=== PATIENT | female | born 1980 ===

== ENCOUNTER → 2023-01-18 10:03 | Outpatient (BNVA) | payer OTHER, SELFPAY | PROVIDERS: Visit Provider Physician Assistant ==

== ENCOUNTER 2023-02-17 08:38 | Outpatient (AMB) | payer OTHER, SELFPAY ==
--- NOTE | 2023-02-17 08:39 | A.OFFVIS_ITS ---
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 Recently diagnosed with DM - last A1C 7.0 Her goal is to be healthier and weight around 150 lbs. She reports first being concerned about her weight 10 years ago, + childhood trauma. She has tried multiple methods of weight loss including different diets without permanent results. She lives with her and dog. 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 She wakes at: 9am bed at 2am Breakfast: decaf coffee with creamer. about an hour later - 2 dry toast with 3 eggs, may have have castro or sausage Lunch: skips lunch 2 d/ week. sandwich or leftovers, water or Cranberry or apple juice Dinner: 6pm - baked chicken, rice or another carb. Vegetables - 2d/week. Juice After dinner: when gets home from work - will have leftovers or oatmeal Other snacks: one snack after dinner - usually sweets with decaf tea before bed Liquids: stopped soda, juice Alcohol intake: no ETOH, tobacco: none, marijuana: none Exercise: at home - total gym, bike. walks her dog on leash Last mammogram: needs to schedule repeat Last pap smear: up to date control method: needs to see hoist mechanic provider - none now VAN:3 ESS:12 GERD:1 QOL:138 PFSH Surgical History History of removal of ovarian cyst Hx of cholecystectomy Hx of myomectomy Hx of umbilical hernia repair Family History Mother Diabetes Father No problems noted. Social History (Updated 01/18/23 @ 10:18 by GIGI Coyle) Alcohol intake: never Patient Tobacco Use Status: Never used Tobacco Physical Exam Const General: cooperative, no acute distress and well developed Nutritional Appearance: obese Orientation/consciousness: patient oriented x3 HEENT Head: Yes normal to inspection Neck Neck: Yes normal visual inspection Thyroid: Thyroid normal Resp Effort & Inspection: normal respiratory effort Auscultation: clear to auscultation bilaterally Cardio Rate: regular rate Rhythm: regular rhythm Heart sounds: S1 normal heart sound present, S2 normal heart sound present and no murmurs GI Inspection: No distended and Yes obesity Palpation (GI): Soft to palpation, nontender and no guarding Skin General skin exam: no rashes or lesions noted and other (warm and dry) Wounds: no wounds Hair: normal Neuro General: patient oriented x3 Extrem General: Yes no pedal edema and Yes no calf tenderness Psych Attitude: cooperative Thought process: Normal thought process present Thought content: Normal thought content present Insight: Good insight present (Psych) Judgement: Good judgement present (Psych) Assessment & Plan Assessment & Plan (1) Morbid obesity: Code(s): E66.01 - Morbid (severe) obesity due to excess calories Plan: This is a 42 yo woman with morbid obesity and HTN who will start SWL program to prepare for bariatric surgery. Blood work, h pylori , CXR, ECG, Abd ULS and UGI have been ordered. She is being scheduled for RD and BH initial consultations. She will start SWL classes and watch at 3 classes before her next appt with Breonna. 1. Adequate sleep of 7-8 hours per night discussed 2. Healthy meal plan - stop skipping meals and stop all sweetened drinks All meals/MR's need to take 20 minutes to complete 11 am - 30 gram shake 2 pm - 30 gram shake 6 pm- dinner of 6 oz lean protein, 8 oz vegetable, 1 serving fruit 1:30 pm- bar or yogurt Exercise - Cardio 4 - 5 d week start with LS 1 mile videos and increase to 2 miles The importance of avoiding and breast feeding for at least 18 months after bariatric surgery was discussed in the information session and was reinforced today. NEEDS CONTRACEPTION Pt will purchase body composition analyzer (recommended list given to patient) and weight herself weekly. Next appt with me in 3 weeks. Text me with any questions and weekly weights. Patient is morbidly obese and is not considered stable at this time.?I spent a total of 60 minutes reviewing/updating records, examining the patient and counseling the patient on weight management as detailed above. (2) HTN (hypertension), benign: Code(s): I10 - Essential (primary) hypertension (3) Diabetes mellitus: Code(s): E11.9 - Type 2 diabetes mellitus without complications Orders: Orders Vitamin B12 and Folate Today E11.9 - Type 2 diabetes mellitus without complications, E66.01 - Morbid (severe) obesity due to excess calories, I10 - Essential (primary) hypertension, Z01.818 - Encounter for other preprocedural examination Comprehensive Met. Panel Today E11.9 - Type 2 diabetes mellitus without complications, E66.01 - Morbid (severe) obesity due to excess calories, I10 - Essential (primary) hypertension, Z01.818 - Encounter for other preprocedural examination C Reactive Protein Today E11.9 - Type 2 diabetes mellitus without complications, E66.01 - Morbid (severe) obesity due to excess calories, I10 - Essential (primary) hypertension, Z01.818 - Encounter for other preprocedural examination Ferritin Today E11.9 - Type 2 diabetes mellitus without complications, E66.01 - Morbid (severe) obesity due to excess calories, I10 - Essential (primary) hypertension, Z01.818 - Encounter for other preprocedural examination Hemoglobin A1c Today E11.9 - Type 2 diabetes mellitus without complications, E66.01 - Morbid (severe) obesity due to excess calories, I10 - Essential (primary) hypertension, Z01.818 - Encounter for other preprocedural examination Insulin Today E11.9 - Type 2 diabetes mellitus without complications, E66.01 - Morbid (severe) obesity due to excess calories, I10 - Essential (primary) hypertension, Z01.818 - Encounter for other preprocedural examination IRON PROFILE Today E11.9 - Type 2 diabetes mellitus without complications, E66.01 - Morbid (severe) obesity due to excess calories, I10 - Essential (primary) hypertension, Z01.818 - Encounter for other preprocedural examination Lipid Panel Today E11.9 - Type 2 diabetes mellitus without complications, E66.01 - Morbid (severe) obesity due to excess calories, I10 - Essential (primary) hypertension, Z01.818 - Encounter for other preprocedural examination PTHI Today E11.9 - Type 2 diabetes mellitus without complications, E66.01 - Morbid (severe) obesity due to excess calories, I10 - Essential (primary) hypertension, Z01.818 - Encounter for other preprocedural examination TSH reflex Free T4 Today E11.9 - Type 2 diabetes mellitus without complications, E66.01 - Morbid (severe) obesity due to excess calories, I10 - Essential (primary) hypertension, Z01.818 - Encounter for other preprocedural examination Vitamin A Today E11.9 - Type 2 diabetes mellitus without complications, E66.01 - Morbid (severe) obesity due to excess calories, I10 - Essential (primary) hypertension, Z01.818 - Encounter for other preprocedural examination Vitamin B1 Today E11.9 - Type 2 diabetes mellitus without complications, E66.01 - Morbid (severe) obesity due to excess calories, I10 - Essential (primary) h ypertension, Z01.818 - Encounter for other preprocedural examination Vitamin D 25-OH Total Today E11.9 - Type 2 diabetes mellitus without complications, E66.01 - Morbid (severe) obesity due to excess calories, I10 - Essential (primary) hypertension, Z01.818 - Encounter for other preprocedural examination Zinc Today E11.9 - Type 2 diabetes mellitus without complications, E66.01 - Morbid (severe) obesity due to excess calories, I10 - Essential (primary) hypertension, Z01.818 - Encounter for other preprocedural examination ECG 12 lead EKG Today E11.9 - Type 2 diabetes mellitus without complications, E66.01 - Morbid (severe) obesity due to excess calories, I10 - Essential (primary) hypertension, Z01.818 - Encounter for other preprocedural examination FL upper GI w air Today E11.9 - Type 2 diabetes mellitus without complications, E66.01 - Morbid (severe) obesity due to excess calories, I10 - Essential (primary) hypertension, Z01.818 - Encounter for other preprocedural examination Complete Blood Count Auto Diff Today E11.9 - Type 2 diabetes mellitus without complications, E66.01 - Morbid (severe) obesity due to excess calories, I10 - Essential (primary) hypertension, Z01.818 - Encounter for other preprocedural examination H Pylori Breath Test Today E11.9 - Type 2 diabetes mellitus without complications, E66.01 - Morbid (severe) obesity due to excess calories, I10 - Essential (primary) hypertension, Z01.818 - Encounter for other preprocedural examination US abdomen comp w elastography Today E11.9 - Type 2 diabetes mellitus without complications, E66.01 - Morbid (severe) obesity due to excess calories, I10 - Essential (primary) hypertension, Z01.818 - Encounter for other preprocedural examination XR chest 2V Today E11.9 - Type 2 diabetes mellitus without complications, E66.01 - Morbid (severe) obesity due to excess calories, I10 - Essential (primary) hypertension, Z01.818 - Encounter for other preprocedural examination Referrals Behavioral Health Referral E11.9 - Type 2 diabetes mellitus without complications, E66.01 - Morbid (severe) obesity due to excess calories, I10 - Essential (primary) hypertension, Z01.818 - Encounter for other preprocedural examination Nutrition/Dietitian Referral E11.9 - Type 2 diabetes mellitus without complications, E66.01 - Morbid (severe) obesity due to excess calories, I10 - Essential (primary) hypertension, Z01.818 - Encounter for other preprocedural examination Coding Level of Care Code New Pt Level 5 (86816) Diagnoses Morbid obesity E66.01 HTN (hypertension), benign I10 Diabetes mellitus E11.9
[2023-02-17 08:41] VITALS: BP 124/74; PULSE 74; TEMP 36.2; O2SAT 98; BMI 50.7
== END 2023-02-17 09:37 | disposition home or self-care (01) ==
PROVIDERS: Visit Provider Physician Assistant
DX: E66.01 Morbid (severe) obesity due to excess calories (principal); Z68.43 Body mass index [BMI] 50.0-59.9, adult; I10 Essential (primary) hypertension; E11.9 Type 2 diabetes mellitus without complications
CPT/HCPCS: 99205

== ENCOUNTER 2023-02-17 08:38 | Outpatient (REF) | payer OTHER, SELFPAY ==
[2023-02-21 14:26] LABS: H Pylori Breath Test Negative (Negative)
== END 2023-02-17 08:39 | disposition home or self-care (01) ==
LOC: HO.LNP 08:38
PROVIDERS: Visit Provider Physician Assistant
DX: Z01.818 Encounter for other preprocedural examination (principal); E66.01 Morbid (severe) obesity due to excess calories; I10 Essential (primary) hypertension; E11.9 Type 2 diabetes mellitus without complications; Z71.3 Dietary counseling and surveillance; Z68.43 Body mass index [BMI] 50.0-59.9, adult
CPT/HCPCS: 83013; 99211

== ENCOUNTER 2023-03-11 09:13 | Outpatient (REF) | payer OTHER, SELFPAY ==
--- NOTE | ~2023-03-11 | US_ITS ---
EXAMINATION: US COMPLETE ABDOMEN WITH LIVER ELASTOGRAPHY CLINICAL INFORMATION: Morbid obesity. COMPARISON: None available. TECHNIQUE: Real-time imaging of the abdominal viscera. Noninvasive ultrasound liver fibrosis assessment is performed using Keven ElastPQ point quantification shear wave elastography (2D-SWE) with a C5-2 MHz transducer. Multiple elastography samples are obtained. FINDINGS: PANCREAS: Normal. The visualized pancreatic head and body are normal in appearance. The remainder of the pancreas is obscured from visualization by the overlying bowel gas. ABDOMINAL AORTA: The proximal, middle, and distal aortic segments are normal in caliber. INFERIOR VENA CAVA: Visualized portions are normal. LIVER: The liver demonstrates normal size, contour and increased echogenicity. There is a hyperechoic lesion left hepatic lobe lateral segment measuring 1.0 x 1.0 x 1.9 cm suggestive of a small hemangioma. No additional lesions seen. There is no intrahepatic biliary duct dilatation. The right lobe measures 13.2 cm in length. The left lobe measures 10.5 cm in length. Portal flow is hepatopedal. Shear wave liver elastography median stiffness is 1.38 m/s (reference: normal median stiffness is 1.3 m/s or less). IQR/median stiffness to assess sampling precision is 0.05 (reference: good quality data set is IQR/median stiffness of 0.15 or less). GALLBLADDER: The gallbladder has been surgically removed. COMMON BILE DUCT: Normal in caliber measuring 0.4 cm in diameter. RIGHT KIDNEY: Normal. No hydronephrosis. No renal calculi or focal parenchymal lesions. The kidney measures 10.7 cm in maximum dimension. LEFT KIDNEY: Normal. No hydronephrosis. No renal calculi or focal parenchymal lesions. The kidney measures 9.3 cm in maximum dimension. SPLEEN: Normal. The spleen measures 9.8 cm in maximum dimension. FREE FLUID: None. US/US abdomen comp w elastography IMPRESSION: 1. Hepatic steatosis with left hepatic lobe hemangioma. No additional lesions seen. 2. Cholecystectomy. The rest of the abdominal ultrasound is unremarkable. 3. Liver elastography: Median liver stiffness measures 1.38 m/s corresponding to cACLD (ruled out). REFERENCE: Society of Radiologists in Ultrasound Liver Stiffness Thresholds (2019): LIVER STIFFNESS THRESHOLDS: *Liver Stiffness equal or less than 1.3 m/s: High probability of being normal. *Liver Stiffness less than 1.7 m/s: In the absence of other known clinical signs, rules out compensated advanced chronic liver disease. *Liver Stiffness 1.7-2.1 m/s: Suggestive of compensated advanced chronic liver disease but need further test for confirmation. *Liver Stiffness over 2.1 m/s: Rules in compensated advanced chronic liver disease. *Liver Stiffness over 2.4 m/s: Suggestive of clinically significant portal hypertension. QUALITY OF DATA SET: *IQR/Median value equal or less than 0.15 implies a quality data set. *IQR/Median value over 0.15 implies a poor quality data set. SIGNIFICANT CHANGE FROM PRIOR EXAM: Significant change if liver stiffness measurement is 10% or greater from prior exam. OTHER CONSIDERATIONS: The stage of liver fibrosis may be overestimated in the setting of acute hepatitis, liver inflammation, elevated liver function tests, hepatic vascular congestion, obstructive cholestasis, non-fasting state, and infiltrative diseases such as amyloidosis and lymphoma. In some patients with NAFLD, the liver stiffness thresholds for compensated advanced chronic liver disease may be lower. In causes other than viral hepatitis and NAFLD, liver stiffness thresholds are not well established.
--- NOTE | ~2023-03-11 | XR_ITS ---
EXAMINATION: XR CHEST CLINICAL INFORMATION: Obesity COMPARISON: None available. TECHNIQUE: 2 views of the chest were obtained. FINDINGS: The cardiac and mediastinal contours are normal. The lungs are clear. No pleural effusion or pneumothorax. Degenerative changes of the spine. XR/XR chest 2V IMPRESSION: No evidence for acute disease in the chest.
== END 2023-03-11 09:14 | disposition home or self-care (01) ==
LOC: HO.US 09:13
PROVIDERS: Visit Provider Physician Assistant
DX: Z01.818 Encounter for other preprocedural examination (principal); E11.9 Type 2 diabetes mellitus without complications; I10 Essential (primary) hypertension; E66.01 Morbid (severe) obesity due to excess calories
CPT/HCPCS: 71046; 76705; 76981

== ENCOUNTER 2023-03-17 09:28 | Outpatient (AMB) | payer OTHER, SELFPAY ==
--- NOTE | 2023-03-17 09:31 | A.OFFVIS_ITS ---
Intake VS Expanded 03/17/23 09:38 Height 5 ft 3 in Weight 272 lb 12.8 oz BMI 48.3 BP 136/66 Blood Pressure Location Rt brachial Blood Pressure Position Sitting Pulse 73 Pulse Source Pulse Oximeter Temp 96.9 F Temperature Source Temporal Artery Scan Pulse Oximetry 99 Oxygen Delivery Method Room Air Body Fat 123.6 Body Fat Percentage 45.4 Free Fat Mass 149.0 Muscle Mass 141.6 Visceral Mass 15.0 Water Mass 106.4 BMR 2,110 Intake Visit Reasons: (OV) F/U SWL Allergies No Known Allergies Allergy (Verified 03/17/23 09:37) HPI HPI Comments History of Present Illness Details This is the patients second appt for SWL. Starting weight was 292.8 lbs.. TBWL is 20 lbs or 6.8% TBWL. Meal plan: 11 am - Premier shake 2:30 - same shake 6pm - meal of 5 oz protien and variety of vegetables, zucchini or mixed vegetables or salad. 10 pm - bar or yogurt Exercise plan: walks a lot on track. Goes every other day - 5 times around track = 1.86 miles - 29 minutes, espino 170 calories. Also bike riding with her Pre op work up completed as follows: SWL classes - 03/15 appts- Avis 03/25 RD appts - 03/29 H pylori - negative Labs and ECG - not done yet CXR - normal ULS - liver steatosis, R 13.2, L 10.5, 1 cm hemangioma UGI - 04/29 Contraception: [facility] Surgical History History of removal of ovarian cyst Hx of cholecystectomy Hx of myomectomy Hx of umbilical hernia repair Family History Mother Diabetes Father No problems noted. Social History Alcohol intake: never Patient Tobacco Use Status: Never used Tobacco Assessment & Plan Assessment & Plan (1) Morbid obesity: Code(s): E66.01 - Morbid (severe) obesity due to excess calories Plan: SWL follow up doing great with 20 lbs or 6.8% TBWL so far. We made some changes to her exercise plan - Walk - 3 d/week 6 [address]es [address] track burn 250 calories 3 d/week LS 2 mile videos No changes to her meal plan. Will get labs and ECG today. Will try to get her an [employer] appt ofr her UGI. Next appt with me in 3 weeks. Patient is morbidly obese and is not considered stable at this time. I spent 30 minutes in total with patient reviewing/updating records, examining the patient and counseling the patient on weight management as detailed above. (2) Diabetes mellitus: Code(s): E11.9 - Type 2 diabetes mellitus without complications (3) HTN (hypertension), benign: Code(s): I10 - Essential (primary) hypertension Coding Level of Care Code Est Pt Level 4 (71469) Diagnoses Morbid obesity E66.01 Diabetes mellitus E11.9 HTN (hypertension), benign I10
[2023-03-17 09:38] VITALS: BP 136/66; PULSE 73; TEMP 36.1; O2SAT 99; BMI 48.3
== END 2023-03-17 09:57 | disposition home or self-care (01) ==
PROVIDERS: Visit Provider Physician Assistant
DX: E66.01 Morbid (severe) obesity due to excess calories (principal); Z68.42 Body mass index [BMI] 45.0-49.9, adult; E11.9 Type 2 diabetes mellitus without complications; I10 Essential (primary) hypertension
CPT/HCPCS: 99214

== ENCOUNTER 2023-03-17 09:28 | Outpatient (REF) | payer OTHER, SELFPAY ==
[2023-03-17 10:29] LABS: MANUAL DIFF FLAG NO
[2023-03-17 10:54] LABS: Basophils Percent Auto 0.7 % (0-2); Eosinophils Absolute Auto 0.1 X10*3/uL (0.0-0.4); Eosinophils Percent Auto 0.9 % (0-4); Hematocrit 35.1 % (37.0-47.0); Imm Gran Abs Auto 0.01 X10*3/uL (0.00-0.03); Imm Gran Pct Auto 0.2 % (0.0-0.4); Lymphocytes Absolute Auto 1.8 X10*3/uL (1.2-4.9); Lymphocytes Percent Auto 31.9 % (20-40); Mean Corpuscular HGB Conc 31.3 g/dl (31.0-35.0); Mean Corpuscular Hemoglobin 23.5 pg (27.0-33.0); Mean Platelet Volume 10.4 fL (9.4-12.3); Monocytes Absolute Auto 0.5 X10*3/uL (0.1-1.2); Monocytes Percent Auto 9.4 % (2-11); Neutrophils Absolute Auto 3.2 x10*3/uL (2.0-8.3); Neutrophils Percent Auto 56.9 % (45-73); Platelet Count 261 X10*3/uL (160-400); Red Blood Count 4.68 X10*6/uL (4.20-5.50); Red Cell Distribution Width 14.7 % (11.0-16.0); White Blood Count 5.6 X10*3/uL (4.8-10.8)
[2023-03-17 11:18] LABS: Estimated Average Glucose 123 mg/dL; Hemoglobin A1c % 5.9 %
[2023-03-17 11:47] LABS: Alanine Aminotransferase 15 U/L (0-31); Albumin Level 4.1 g/dL (3.5-5.0); Alkaline Phosphatase 43 U/L (39-117); Anion Gap 15 (12-20); Aspartate Amino Transferase 19 U/L (5-31); Bilirubin Total 0.7 mg/dL (0.0-1.0); Blood Urea Nitrogen 12 mg/dL (9-16); C Reactive Protein 0.67 mg/dL (< or = 0.50); Calcium 10.4 mg/dL (8.4-10.2); Carbon Dioxide 25 mmol/L (22-29); Chloride 103 mmol/L (96-108); Cholesterol 145 mg/dL; Estimated Glomerular Filt Rate > 60; Glucose Random 86 mg/dL (60-115); HDL Cholesterol 41 mg/dL; Iron 68 mcg/dL (30-160); LDL Cholesterol Calculated 95 mg/dl; Percent Iron Saturation 25 % (15-50); Potassium 3.5 mmol/L (3.3-5.1); Sodium 139 mmol/L (135-145); Total Iron Binding Capacity 274 mcg/dL (228-428); Total Protein 7.3 g/dL (6.5-8.0); Triglycerides 45 mg/dL; Unsaturated Iron Binding 206 ug/dL
[2023-03-17 11:59] LABS: Ferritin 77 ng/mL (10-250); TSH reflex Free T4 1.07 uIU/mL (0.32-4.0); Vitamin D 25-OH Total 42.8 ng/mL (>30)
[2023-03-17 12:07] LABS: Folate 16.6 ng/mL (> or = 4.0); Vitamin B12 1287 pg/mL (200-900)
[2023-03-17 12:26] LABS: Insulin 20 uU/mL (2-29)
[2023-03-18 19:38] LABS: Calcium (PTHI) 9.9 mg/dL (8.6-10.2); PTHI 53 pg/mL (16-77)
[2023-03-22 04:33] LABS: Zinc 97 mcg/dL (60-130)
[2023-03-22 22:03] LABS: Vitamin B1 12 nmol/L (8-30)
[2023-03-24 09:30] LABS: Vitamin A 29 mcg/dL (38-98)
== END 2023-03-17 09:29 | disposition home or self-care (01) ==
LOC: HO.LAB 09:28
PROVIDERS: Visit Provider Physician Assistant
DX: Z01.818 Encounter for other preprocedural examination (principal); E66.01 Morbid (severe) obesity due to excess calories; E11.9 Type 2 diabetes mellitus without complications; I10 Essential (primary) hypertension
CPT/HCPCS: 36415; 80053; 80061; 82306; 82607; 82728; 82746; 83036; 83525; 83540; 83970; 84425; 84443; 84590; 84630; 85025; 86140

== ENCOUNTER 2023-03-29 10:28 | Outpatient (AMB) | payer OTHER, SELFPAY ==
--- NOTE | 2023-03-17 10:09 | ECG_ITS ---
Test Reason : MORBID OBESITY Blood Pressure : / mmHG Vent. Rate : 068 BPM Atrial Rate : 068 BPM P-R Int : 180 ms QRS Dur : 102 ms QT Int : 412 ms P-R-T Axes : 029 -23 005 degrees QTc Int : 438 ms Normal sinus rhythm with sinus arrhythmia Incomplete right bundle branch block Minimal voltage criteria for LVH, may be normal variant ( R in aVL ) Borderline ECG No previous ECGs available Referred By: Padmini Villarreal Electronically Signed By:Jose William
[2023-03-29 10:54] VITALS: BMI 47.5
--- NOTE | 2023-03-29 10:54 | A.OFFVIS_ITS ---
Intake VS Expanded 03/29/23 10:54 Height 5 ft 3 in Weight 268 lb BMI 47.5 Body Fat 122.2 Body Fat Percentage 45.5 Muscle Mass 138.8 Visceral Mass 15 Water Mass 104.0 BMR 2,069 Intake Visit Reasons: (OV) Initial Nutrition SWL Allergies No Known Allergies Allergy (Verified 03/17/23 09:37) HPI Nutrition Presentation Details Starting weight 292.8 lbs current weight 268# Body comp reviewed Reason for consult elevated BMI Diet Assmnt Details Meal plan: 11 am - Premier shake 2:30 - same shake 6pm - meal of 5 oz protien and variety of vegetables, zucchini or mixed vegetables or salad. 10 pm - bar or yogurt Exercise plan: walks a lot on track. Goes every other day - 5 times around track = 1.86 miles - 29 minutes, espino 170 calories. Also bike riding with her . Patient shares her is extremely supportive. If I want to do anything he will do with me . SWL online classes 09/15 ; patient thought she had completed them all Dietary counseling reduction Who buys your food self and spouse Who prepares/cooks your food self and spouse Lifestyle Family support Yes Diagnosis Nutrition problem #1 overweight/obesity As related to (etiology) #1 excess energy intake and physical inactivity As evidenced by (sign/symptom) #1 high BMI Monitoring/Goals Nutrition problem monitoring total energy intake, level of knowledge/skill, total PRO intake, total CHO intake and weight Outcome progress progressing Learning/Education Readiness to learn excellent Stages of change action Educational materials provided Yes Most Recent Diabetes Results: Cholesterol 145 mg/dL 03/17/23 HDL Cholesterol 41 mg/dL 03/17/23 Triglycerides 45 mg/dL 03/17/23 Creatinine 0.88 mg/dL (0.5-1.4) 03/17/23 Blood Urea Nitrogen 12 mg/dL (9-16) 03/17/23 Sodium 139 mmol/L (135-145) 03/17/23 Potassium 3.5 mmol/L (3.3-5.1) 03/17/23 Chloride 103 mmol/L (96-108) 03/17/23 Carbon Dioxide 25 mmol/L (22-29) 03/17/23 Calcium 10.4 mg/dL (8.4-10.2) H 03/17/23 AST 19 U/L (5-31) 03/17/23 ALT 15 U/L (0-31) 03/17/23 Total Protein 7.3 g/dL (6.5-8.0) 03/17/23 Albumin 4.1 g/dL (3.5-5.0) 03/17/23 [facility] Surgical History History of removal of ovarian cyst Hx of cholecystectomy Hx of myomectomy Hx of umbilical hernia repair Family History Mother Diabetes Father No problems noted. Social History Alcohol intake: never Patient Tobacco Use Status: Never used Tobacco Assessment & Plan Assessment & Plan (1) Morbid obesity: Code(s): E66.01 - Morbid (severe) obesity due to excess calories (2) Diabetes mellitus: Code(s): E11.9 - Type 2 diabetes mellitus without complications Patient Instructions: no changes made to nutrition plan but provided recipe resources and all class education . she will complete online classes, follow up 04/29 8:45 am OV - has imaging study same morning. she will likely be a great candidate once all program requirements are completed Coding Level of Care Code Nutr Indiv Intake (17641) Diagnoses Morbid obesity E66.01 Diabetes mellitus E11.9 Time Spent (min) 30
== END 2023-03-29 11:32 | disposition home or self-care (01) ==
PROVIDERS: Visit Provider Dietitian, Registered
DX: E66.01 Morbid (severe) obesity due to excess calories (principal); E11.9 Type 2 diabetes mellitus without complications
CPT/HCPCS: 93010

== ENCOUNTER → 2023-03-29 11:00 | Outpatient (BNVA) | payer OTHER, SELFPAY | PROVIDERS: Visit Provider Dietitian, Registered | DX: E66.01 Morbid (severe) obesity due to excess calories (principal); Z68.42 Body mass index [BMI] 45.0-49.9, adult; E11.9 Type 2 diabetes mellitus without complications; Z71.3 Dietary counseling and surveillance | CPT/HCPCS: 97802 ==

== ENCOUNTER 2023-04-14 09:32 | Outpatient (AMB) | payer OTHER, SELFPAY ==
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
== END 2023-04-14 10:43 | disposition home or self-care (01) ==
PROVIDERS: Visit Provider Counselor Mental Health
DX: F50.9 Eating disorder, unspecified (principal)
CPT/HCPCS: 90791

== ENCOUNTER → 2023-04-14 09:32 | Outpatient (BNVA) | payer OTHER, SELFPAY | PROVIDERS: Visit Provider Counselor Mental Health ==

== ENCOUNTER 2023-04-29 08:06 | Outpatient (REF) | payer OTHER, SELFPAY ==
--- NOTE | ~2023-04-29 | FL_ITS ---
EXAMINATION: XR FLUOROSCOPY UPPER GI WITH AIR CLINICAL INFORMATION: [id number] obesity due to excess calories. COMPARISON: None available. TECHNIQUE: Routine upper GI air contrast study is performed in upright and lying position. FINDINGS: Following oral administration of thick barium and effervescent granules, there is normal propagation of bolus from the oral cavity through the pharynx, esophagus into stomach without any evidence of obstruction, narrowing or stricture. The course, caliber and peristalsis of the stomach, duodenal bulb and the sweep is normal. The mucosal pattern of the stomach and the duodenum is normal. On placing patient supine and prone lying, there is mild gastroesophageal reflux without hiatal hernia. There is evidence of previous right upper quadrant cholecystectomy. FLUOROSCOPY TIME: 1 minute and 2 seconds DOSE AREA PRODUCT: 2713 uGy-m2 (microgray-meter squared) FL/FL upper GI w air IMPRESSION: Mild gastroesophageal reflux otherwise unremarkable upper GI air contrast study.
== END 2023-04-29 08:07 | disposition home or self-care (01) ==
LOC: HO.XRAY 08:06
PROVIDERS: Visit Provider Physician Assistant
DX: K21.9 Gastro-esophageal reflux disease without esophagitis (principal); E66.01 Morbid (severe) obesity due to excess calories; I10 Essential (primary) hypertension; E11.9 Type 2 diabetes mellitus without complications; Z01.818 Encounter for other preprocedural examination
CPT/HCPCS: 74246; 97803

== ENCOUNTER → 2023-04-29 08:08 | Outpatient (BNV) | payer OTHER, SELFPAY | PROVIDERS: Visit Provider Radiology Diagnostic Radiology | DX: K21.9 Gastro-esophageal reflux disease without esophagitis (principal) | CPT/HCPCS: 74246 ==

== ENCOUNTER 2023-04-29 08:58 | Outpatient (AMB) | payer OTHER, SELFPAY ==
--- NOTE | 2023-04-29 08:58 | A.OFFVIS_ITS ---
Intake VS Expanded 04/29/23 09:14 Height 5 ft 3 in Weight 257 lb BMI 45.5 Intake Visit Reasons: (OV) F/U SWL Allergies No Known Allergies Allergy (Verified 03/17/23 09:37) HPI Nutrition Presentation Details Starting weight 292.8 lbs Last weight weight 268# Current weight 257# 35# down Reason for consult elevated BMI Diet Assmnt Details Meal plan: 11 am - Premier shake 2:30 - same shake 6pm - meal of 5 oz protien and variety o f vegetables, zucchini or mixed vegetables or salad. 10 pm - bar or yogurt Patient notes she has not deviated the above at all, she is very committed Exercise plan: walks every other day 30-40 , Also bike riding with her . Patient shares her is extremely supportive. If I want to do anything he will do with me . SWL online classes: completed , reviewed, demonstrates understanding. Dietary counseling reduction Lifestyle Family support Yes Diagnosis Nutrition problem #1 overweight/obesity As related to (etiology) #1 excess energy intake and physical inactivity As evidenced by (sign/symptom) #1 high BMI Monitoring/Goals Nutrition problem monitoring total energy intake, level of knowledge/skill, total PRO intake, total CHO intake and weight Outcome progress progressing Learning/Education Readiness to learn excellent Stages of change action Most Recent Diabetes Results: Cholesterol 145 mg/dL 03/17/23 HDL Cholesterol 41 mg/dL 03/17/23 Triglycerides 45 mg/dL 03/17/23 Creatinine 0.88 mg/dL (0.5-1.4) 03/17/23 Blood Urea Nitrogen 12 mg/dL (9-16) 03/17/23 Sodium 139 mmol/L (135-145) 03/17/23 Potassium 3.5 mmol/L (3.3-5.1) 03/17/23 Chloride 103 mmol/L (96-108) 03/17/23 Carbon Dioxide 25 mmol/L (22-29) 03/17/23 Calcium 10.4 mg/dL (8.4-10.2) H 03/17/23 AST 19 U/L (5-31) 03/17/23 ALT 15 U/L (0-31) 03/17/23 Total Protein 7.3 g/dL (6.5-8.0) 03/17/23 Albumin 4.1 g/dL (3.5-5.0) 03/17/23 [facility] Surgical History History of removal of ovarian cyst Hx of cholecystectomy Hx of myomectomy Hx of umbilical hernia repair Family History Mother Diabetes Father No problems noted. Social History Alcohol intake: never Patient Tobacco Use Status: Never used Tobacco Assessment & Plan Assessment & Plan (1) Morbid obesity: Code(s): E66.01 - Morbid (severe) obesity due to excess calories Patient Instructions: Patient is cleared from a nutrition standpoint for bariatric surgery. Educational requirements have been completed. Reviewed vitamin supplementation and commitment to protein shake for several months post surgery. Encouraged communication with office as needed Coding Level of Care Code Nutr Indiv Subseq ([id number]) Diagnoses Morbid obesity E66.01 Time Spent (min) 20
[2023-04-29 09:14] VITALS: BMI 45.5
== END 2023-04-29 09:14 | disposition home or self-care (01) ==
PROVIDERS: Visit Provider Dietitian, Registered
DX: E66.01 Morbid (severe) obesity due to excess calories (principal)

== ENCOUNTER 2023-05-03 09:58 | Outpatient (AMB) | payer OTHER, SELFPAY ==
--- NOTE | 2023-05-03 08:46 | A.OFFVIS_ITS ---
Intake VS Expanded 05/03/23 09:33 Height 5 ft 3 in Weight 259 lb BMI 45.9 BP 115/80 Intake Visit Reasons: (TV) F/U SWL Allergies No Known Allergies Allergy (Verified 03/17/23 09:37) HPI HPI Comments History of Present Illness Details SWL follow up, [employer] OR TRAP weight 292.8 lbs, TBWL is 33.8 lbs or 11.5%. Meal plan: 11 am - shake 3pm - shake 6pm - dinner of 6 oz mixed vegetables or salad with 5 oz chicken or salmon 10 pm - bar Exercise - ST every other day on her [employer] gym, walks 3 d/week -? doesn't know time/calories etc... Pre op work up completed as follows: SWL classes - 03/15 BH appts- Avis 03/25, cleared RD appts - 03/29, cleared H pylori - negative Labs - vit A def and anemia ECG - NSR, incomplete RBBB, borderline CXR - normal ULS - liver steatosis, R 13.2, L 10.5, 1 cm hemangioma UGI - Mild gastroesophageal reflux otherwise unremarkable upper GI air contrast study. Contraception: they will use condoms until patient gets Nexplanon, will call for appt today. [facility] Surgical History History of removal of ovarian cyst Hx of cholecystectomy Hx of myomectomy Hx of umbilical hernia repair Family History Mother Diabetes Father No problems noted. Social History Alcohol intake: never Patient Tobacco Use Status: Never used Tobacco Assessment & Plan Assessment & Plan (1) Morbid obesity: Code(s): E66.01 - Morbid (severe) obesity due to excess calories Plan: Pt has lost 33.8 lbs or 11.5% TBWL, she has completed all pre operative work up and will be scheduled for surgical consult with Dr Velasquez. Meal plan - no changes Exercise plan - increase to walks 4 d/week- 300 calories , 2 miles in [address], try TBP Will text me later in the week iwth electronic weight and TBP review. Continue taking both iron supplements for now - will check CBC prior to surgery. Patient is still morbidly obese and is not considered stable at this time. I spent 30 minutes in total speaking with the patient via video conference counseling , reviewing records and charting in patients chart. . (2) HTN (hypertension), benign: Code(s): I10 - Essential (primary) hypertension (3) Diabetes mellitus: Code(s): E11.9 - Type 2 diabetes mellitus without complications Medications: Refilled iron,carbonyl-vitamin C 65 mg iron- 125 mg (Vitron-C) 1 tab PO BEDTIME 30 tabs 4RF Telehealth Telehealth Location of provider rendering services: practice address Location of patient: address on file Patient Identification confirmed using: Name, : Yes Telehealth method: video Patient verbally consented to treatment: Yes Patient verbally consented to billing insurance company: Yes Patient informed of any privacy concerns related to visit: Yes Coding Level of Care Code Tele Est Pt Level 4 (52234) Diagnoses Morbid obesity E66.01 HTN (hypertension), benign I10 Diabetes mellitus E11.9
[2023-05-03 09:33] VITALS: BP 115/80; BMI 45.9
== END 2023-05-03 09:58 | disposition home or self-care (01) ==
LOC: HO.HBS 09:58
PROVIDERS: Visit Provider Physician Assistant
DX: E66.01 Morbid (severe) obesity due to excess calories (principal); Z68.42 Body mass index [BMI] 45.0-49.9, adult; E11.9 Type 2 diabetes mellitus without complications
CPT/HCPCS: 99213

== ENCOUNTER → 2023-05-03 09:58 | Outpatient (BNVA) | payer OTHER, SELFPAY | PROVIDERS: Visit Provider Physician Assistant ==

== ENCOUNTER 2023-05-10 09:37 | Outpatient (AMB) | payer OTHER, SELFPAY ==
--- NOTE | 2023-05-10 09:38 | MHC.OFFVISWM ---
Intake VS Expanded 05/10/23 09:45 BP 131/70 Blood Pressure Location Rt brachial Blood Pressure Position Sitting Pulse 68 Pulse Source Pulse Oximeter Temp 97.2 F Temperature Source Tympanic Pulse Oximetry 98 Oxygen Delivery Method Room Air Height 5 ft 3 in Weight 255 lb 6.4 oz BMI 45.2 Body Fat % 42.4 Body Fat Mass 108.2 Fat Free Mass 147.0 Visceral Fat Rating 13.0 Body Water % 41.1 Body Water Mass 105.0 Muscle Mass/Score 139.6 Basal Metabolic Rate/Score 2,057 Intake Visit Reasons: (OV) F/U SWL (Padmini) Allergies No Known Allergies Allergy (Verified 05/10/23 09:40) HPI HPI Comments History of Present Illness Details The patient is a 42-year-old woman with a history of type 2 diabetes identified with a hemoglobin A1c of 7.0, hypertension who entered the surgical weight loss program 02/17/2023 with a weight of 286.4 lb/BMI 50.7. She states she has tried fad diets, portion control and self exercise, all unsuccessfully. She has reviewed options including ongoing medical weight loss and bariatric surgery and is interested in a laparoscopic sleeve gastrectomy. She presents today at 255.4 lbs/BMI 45.2 & is congratulated on her interval weight loss. She reports a PSH: lap candelaria, umilical hernia repair with mesh, laparoscopy for scar tissue Patient notes that she will be going for Nexplanon, has no desire to become and will use condoms in the meantime. VAN 3 ESS 12 GERD 1 QOL 138 Meal plan: 11 am - shake 3pm - shake 6pm - dinner of 6 oz mixed vegetables or salad with 5 oz chicken or salmon 10 pm - bar Exercise - ST every other day on her total gym, walks 3 d/week -? doesn't know time/calories etc... Pre op work up completed as follows: SWL classes - 03/15 BH appts- Avis 03/25, cleared RD appts - 03/29, cleared H pylori - negative Labs - vit A def and anemia ECG - NSR, incomplete RBBB, borderline CXR - normal ULS - liver steatosis, R 13.2, L 10.5, 1 cm hemangioma (appears intraparenchymal on U/S images) UGI - Mild gastroesophageal reflux otherwise unremarkable upper GI air contrast study. PFSH Surgical History (Updated 05/10/23 @ 12:57 by Khurram Velasquez MD) History of removal of ovarian cyst Hx of cholecystectomy Hx of myomectomy Hx of umbilical hernia repair Family History Mother Diabetes Father No problems noted. Social History Alcohol intake: never Patient Tobacco Use Status: Never used Tobacco Review of Systems Const All systems reviewed & are unremarkable except as noted in HPI and below Reports as per HPI Physical Exam On exam, the patient is nontoxic and in good spirits She is in no acute distress She is having no respiratory difficulty Abdomen is obese with well-healed scars, no tenderness and no evidence of her recurrent or incisional hernia. Results Reviewed Results Reviewed: Labs 03/17/23 Hb 11.0, wbc 5.6, Plts 261K HbA1C down to 5.9 from 7.0 lytes WNL, BUN 12, Cr 0.88 Vit A low & tx'd CRP 0.67 Diagnostic imaging 04/29/23 UGI: no HH + GERD CXR NAD Abd U/S & liver elastography NAFLD, left lobe intraparenchymal hemangioma Assessment & Plan Assessment & Plan (1) Morbid obesity: Code(s): E66.01 - Morbid (severe) obesity due to excess calories (2) HTN (hypertension), benign: Code(s): I10 - Essential (primary) hypertension (3) Diabetes mellitus: Code(s): E11.9 - Type 2 diabetes mellitus without complications (4) Hx of umbilical hernia repair: Code(s): Z98.890 - Other specified postprocedural states; Z87.19 - Personal history of other diseases of the digestive system (5) Hx of cholecystectomy: Code(s): Z90.49 - Acquired absence of other specified parts of digestive tract Plan The patient is congratulated on her ongoing healthy lifestyle changes and weight loss. Options of medical weight loss versus bariatric surgery was discussed. The patient remains interested and would like to have a laparoscopic sleeve gastrectomy, possible hiatal hernia repair, intraoperative endoscopy and possible ventral hernia repair. Her questions regarding time out of work, the importance of diet and increased activity/exercise and trending calories burn, the risk of weight regain, risks of bleeding, DVT/fatal PE all reviewed. The patient notes that her Mormonism, and while she is not and is willing to receive prbc transfusion if necessary to save her life, she notes that he likely will have a different opinion. The patient had questions regarding scar tissue since she has had previous laparoscopy. Explained that significant scar tissue after laparoscopic sleeve gastrectomy is uncommon but very rarely, sleeve strictures or kinks can occur requiring reoperation. No change to meal plan was made at today's visit. She will continue on the current plan. Exercise importance stressed. She will follow up with me at the end of May. Will reassess towards scheduling surgery at that visit possibly for June. Coding Level of Care Code Est Pt Level 4 (98015) Diagnoses Morbid obesity E66.01 HTN (hypertension), benign I10 Diabetes mellitus E11.9 Hx of umbilical hernia repair Z98.890; Z87.19 Hx of cholecystectomy Z90.49
[2023-05-10 09:45] VITALS: BP 131/70; PULSE 68; TEMP 36.2; O2SAT 98; BMI 45.2
== END 2023-05-10 10:27 | disposition home or self-care (01) ==
PROVIDERS: Visit Provider Surgery
DX: E66.01 Morbid (severe) obesity due to excess calories (principal); Z68.42 Body mass index [BMI] 45.0-49.9, adult; I10 Essential (primary) hypertension; E11.9 Type 2 diabetes mellitus without complications; Z87.19 Personal history of other diseases of the digestive system; Z90.49 Acquired absence of other specified parts of digestive tract
CPT/HCPCS: 99214

== ENCOUNTER → 2023-05-10 09:37 | Outpatient (BNVA) | payer OTHER, SELFPAY | PROVIDERS: Visit Provider Surgery ==

== ENCOUNTER 2023-06-07 10:35 | Outpatient (AMB) | payer OTHER, SELFPAY ==
--- NOTE | 2023-06-07 10:38 | A.OFFVIS_ITS ---
Intake VS Expanded 06/07/23 10:44 BP 130/64 Blood Pressure Location Rt brachial Blood Pressure Position Sitting Pulse 69 Pulse Source Pulse Oximeter Temp 96.6 F L Temperature Source Tympanic Pulse Oximetry 97 Oxygen Delivery Method Room Air Height 5 ft 3 in Weight 251 lb 9.6 oz BMI 44.6 Body Fat % 41.4 Body Fat Mass 147.4 Fat Free Mass 147.4 Visceral Fat Rating 13.0 Body Water % 41.9 Body Water Mass 105.4 Muscle Mass/Score 140.0 Basal Metabolic Rate/Score 2,056 Intake Visit Reasons: (OV) F/U SWL (Padmini) Motor Block Mechanic Required: No Structural Mill Supervisor: Structural Mill Supervisor offered & declined Allergies No Known Allergies Allergy (Verified 05/10/23 09:40) HPI HPI Comments History of Present Illness Details The patient is a 42-year-old woman with a history of type 2 diabetes identified with a hemoglobin A1c of 7.0, hypertension who entered the surgical weight loss program 02/17/2023 with a weight of 286.4 lb/BMI 50.7. She states she has tried fad diets, portion control and self exercise, all unsuccessfully. She has reviewed options including ongoing medical weight loss and bariatric surgery and is interested in a laparoscopic sleeve gastrectomy. She presents today at 251.6.4 lbs/BMI 44.6 & is congratulated on her interval weight loss of 4 lbs since her last visit at the beginning of the month. 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 We discussed the importance of a preemptive plan giving her activity restrictions, bowel prep. She reports a PSH: lap candelaria, umbilical hernia repair with mesh, laparoscopy for scar tissue Patient notes that she will be going for Nexplanon, has no desire to become and will use condoms in the meantime. VAN 3 ESS 12 GERD 1 QOL 138 Meal plan: 11 am - shake 3pm - shake 6pm - dinner of 6 oz mixed vegetables or salad with 5 oz chicken or salmon 10 pm - bar Exercise - ST every other day on her total gym, walks 3 d/week -? doesn't know time/calories etc... Pre op work up completed as follows: SWL classes - 03/15 BH appts- Avis 03/25, cleared RD appts - 03/29, cleared H pylori - negative Labs - vit A def and anemia ECG - NSR, incomplete RBBB, borderline CXR - normal ULS - liver steatosis, R 13.2, L 10.5, 1 cm hemangioma (appears intraparenchymal on U/S images) UGI - Mild gastroesophageal reflux otherwise unremarkable upper GI air contrast study. REPLACED BY [facility] Surgical History History of removal of ovarian cyst Hx of cholecystectomy Hx of myomectomy Hx of umbilical hernia repair Family History Mother Diabetes Father No problems noted. Social History Alcohol intake: never Patient Tobacco Use Status: Never used Tobacco Review of Systems Const All systems reviewed & are unremarkable except as noted in HPI and below Physical Exam On exam, the patient is nontoxic and in good spirits She is in no acute distress She is having no respiratory difficulty Abdomen is obese with well-healed scars, no tenderness and no evidence of her recurrent or incisional hernia. Results Reviewed Results Reviewed: Labs 03/17/23 Hb 11.0, wbc 5.6, Plts 261K HbA1C down to 5.9 from 7.0 lytes WNL, BUN 12, Cr 0.88 Vit A low & tx'd CRP 0.67 Repeat HbA1C ordered today Diagnostic imaging 04/29/23 UGI: no HH + GERD CXR NAD Abd U/S & liver elastography NAFLD, left lobe intraparenchymal hemangioma Assessment & Plan Assessment & Plan (1) Diabetes mellitus: Code(s): E11.9 - Type 2 diabetes mellitus without complications (2) Morbid obesity: Code(s): E66.01 - Morbid (severe) obesity due to excess calories Plan The patient is congratulated on her ongoing healthy lifestyle changes and subsequent related weight loss. Options were discussed at length and her questions answered. She would like to proceed with a laparoscopic sleeve gastrectomy, possible hiatal hernia repair, intraoperative upper endoscopy and possible ventral hernia repair. We again reviewed the inherent risks of bleeding, need for reoperation, need for blood transfusion, risk of dehydration and DVT that could cause fatal PE, briefly reviewed the ana and postoperative plan in the importance of hydration and obtaining her protein shakes in advance. Discussion regarding her employer was addressed and she wrote notes to help facilitate this discussion. Patient will obtain a repeat hemoglobin A1c today and will be contacted after for 1 hour visit to schedule surgery, review the liver shrinking diet, and will be submitted to her insurance for surgery. Orders: Orders Hemoglobin A1c Today E11.9 - Type 2 diabetes mellitus without complications, E66.01 - Morbid (severe) obesity due to excess calories Coding Level of Care Code Est Pt Level 4 (16970) Diagnoses Diabetes mellitus E11.9 Morbid obesity E66.01
[2023-06-07 10:44] VITALS: BP 130/64; PULSE 69; TEMP 35.9; O2SAT 97; BMI 44.6
== END 2023-06-07 11:38 | disposition home or self-care (01) ==
PROVIDERS: Visit Provider Surgery
DX: E66.01 Morbid (severe) obesity due to excess calories (principal); Z68.41 Body mass index [BMI] 40.0-44.9, adult; E11.9 Type 2 diabetes mellitus without complications
CPT/HCPCS: 99214

== ENCOUNTER 2023-06-07 10:35 | Outpatient (REF) | payer OTHER, SELFPAY ==
[2023-06-07 12:05] LABS: Estimated Average Glucose 111 mg/dL; Hemoglobin A1c % 5.5 % (<6.0)
== END 2023-06-07 10:36 | disposition home or self-care (01) ==
LOC: HO.LAB 10:35
PROVIDERS: Visit Provider Surgery
DX: E11.9 Type 2 diabetes mellitus without complications (principal); E66.01 Morbid (severe) obesity due to excess calories
CPT/HCPCS: 36415; 83036

== ENCOUNTER 2023-06-17 09:57 | Outpatient (AMB) | payer OTHER, SELFPAY ==
--- NOTE | 2023-06-17 10:00 | A.OFFVIS_ITS ---
Intake VS Expanded 06/17/23 10:10 BP 134/74 Blood Pressure Location Rt brachial Blood Pressure Position Sitting Pulse 86 Pulse Source Pulse Oximeter Temp 97.5 F Temperature Source Temporal Artery Scan Pulse Oximetry 100 Oxygen Delivery Method Room Air Height 5 ft 3 in Weight 244 lb 9.6 oz BMI 43.3 Body Fat % 41.9 Body Fat Mass 102.6 Fat Free Mass 142.0 Visceral Fat Rating 12.0 Body Water % 41.5 Body Water Mass 101.4 Muscle Mass/Score 135.0 Basal Metabolic Rate/Score 1,980 Intake Visit Reasons: (OV) Pre Op LSG 06/29/23 Allergies No Known Allergies Allergy (Verified 06/17/23 10:04) HPI HPI Comments History of Present Illness Details The patient is a 42-year-old woman with a history of type 2 diabetes identified with a hemoglobin A1c of 7.0, hypertension who entered the surgical weight loss program 02/17/2023 with a weight of 286.4 lb/BMI 50.7. She states she has tried fad diets, portion control and self exercise, all unsuccessfully. She has reviewed options including ongoing medical weight loss and bariatric surgery and is interested in a laparoscopic sleeve gastrectomy. She is accompanied by her today. Patient had previously discussed that he is a Sabianist and she tries to follow their practice so we discussed the possibility of blood transfusion as well as options. Patient has requested we try to avoid any blood transfusions but is willing to discuss them if they become necessary. The possible need to reassess unusual complaints in the operating room with a repeat operation was also reviewed and apparently understood. She presents today at 244.6 lbs/BMI 43.3 & is congratulated on her interval weight loss of since her last visit at the beginning of the month. She has lost 42.1 lb since entering the surgical weight loss program. 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 We discussed the importance of a preemptive plan giving her activity restrictions, bowel pre p. She reports a PSH: lap candelaria, umbilical hernia repair with mesh, laparoscopy for scar tissue Patient notes that she will be going for Nexplanon, has no desire to become and will use condoms in the meantime. VAN 3 ESS 12 GERD 1 QOL 138 Meal plan: 11 am - shake 3pm - shake 6pm - dinner of 6 oz mixed vegetables or salad with 5 oz chicken or salmon 10 pm - bar Exercise - ST every other day on her total gym, walks 3 d/week -? doesn't know time/calories etc... Pre op work up completed as follows: SWL classes - 03/15 BH appts- Avis 03/25, cleared RD appts - 03/29, cleared H pylori - negative Labs - vit A def and anemia ECG - NSR, incomplete RBBB, borderline CXR - normal ULS - liver steatosis, R 13.2, L 10.5, 1 cm hemangioma (appears intraparenchymal on U/S images) UGI - Mild gastroesophageal reflux otherwise unremarkable upper GI air contrast study. [facility] Surgical History History of removal of ovarian cyst Hx of cholecystectomy Hx of myomectomy Hx of umbilical hernia repair Family History Mother Diabetes Father No problems noted. Social History Alcohol intake: never Patient Tobacco Use Status: Never used Tobacco Review of Systems Const All systems reviewed & are unremarkable except as noted in HPI and below Physical Exam Vital Signs: Last Vital Signs Temp 97.5 F 06/17/23 10:10 Pulse 86 06/17/23 10:10 BP 134/74 06/17/23 10:10 Pulse Ox 100 06/17/23 10:10 Oxygen Delivery Method Room Air 06/17/23 10:10 BMI result Body Mass Index 43.3 On exam, the patient is anicteric and nontoxic She is having no respiratory difficulty Abdomen is obese and soft with no obvious hernia Results Reviewed Results Reviewed: Labs 03/17/23 Hb 11.0, wbc 5.6, Plts 261K HbA1C down to 5.9 from 7.0 lytes WNL, BUN 12, Cr 0.88 Vit A low & tx'd CRP 0.67 Repeat HbA1C 5.5 Diagnostic imaging 04/29/23 UGI: no HH + GERD CXR NAD Abd U/S & liver elastography NAFLD, left lobe intraparenchymal hemangioma Assessment & Plan Assessment & Plan (1) Morbid obesity: Code(s): E66.01 - Morbid (severe) obesity due to excess calories (2) HTN (hypertension), benign: Code(s): I10 - Essential (primary) hypertension (3) Diabetes mellitus: Code(s): E11.9 - Type 2 diabetes mellitus without complications (4) Hx of umbilical hernia repair: Code(s): Z98.890 - Other specified postprocedural states; Z87.19 - Personal history of other diseases of the digestive system (5) Hx of cholecystectomy: Code(s): Z90.49 - Acquired absence of other specified parts of digestive tract Plan The patient is congratulated on her interval weight loss and healthy lifestyle changes. Options of continued medical management, 2nd opinion with another surgeon and the options of sleeve gastrectomy and gastric bypass were discussed. Patient and her seem to understand their options and the patient would like to proceed with a laparoscopic sleeve gastrectomy, possible hiatal hernia repair, intraoperative upper endoscopy and possible ventral hernia repair. I reviewed the inherent risks of this procedure which include, but are not limited to: Bleeding that could require another operation or blood transfusion; the inherent risks of transfusion reaction infectious disease from blood transfusions; the risk of staple line leaks that could cause sepsis, multi- system organ failure and ; the risk of mesenteric or deep vein thrombosis of the lower extremities that could cause a fatal pulmonary embolism was reviewed; the risk of GERD that could require conversion to gastric bypass was discussed; the risk of recurrent hiatal hernia, especially in the setting of weight regain was reviewed. The risk of weight regain if maladaptive eating and sedentary behavior continue was discussed. The importance of proper diet and increased activity to augment surgical weight loss and the fact that no operation would result in weight loss of poor dietary decisions and sedentary behavior are resumed were discussed at length and apparently understood. The patient, her and I discussed the possible issues regarding the christian concerns about blood transfusion and the possible need for diagnostic laparoscopy if there are any questions regarding bleeding to try to avoid a blood transfusion. The patient also noted that she would prefer a discussion if this becomes necessary. While the patient had previously noted a planned for Nexplanon as a contraceptive, she states that she was started on an oral contraceptive Incassia/progesterone. Due to the risk of DVT related from that could cause a fatal PE, she will stop them now & for a month post-op. Liver shrinking diet plan and handout were reviewed with the patient. She will text me if there are questions or concerns. The importance of following the diet was reviewed. See orders; typical perioperative course including bowel prep, meal plan, activity restrictions, the importance of hydration all discussed. Patient will void her urinary bladder club concierge to surgery, receive Ancef, 2 g IV and have SCDs in place. Orders: Orders Comprehensive Met. Panel 06/16/23 E11.9 - Type 2 diabetes mellitus without complications, E66.01 - Morbid (severe) obesity due to excess calories, I10 - Essential (primary) hypertension IRON PROFILE 06/16/23 E11.9 - Type 2 diabetes mellitus without complications, E66.01 - Morbid (severe) obesity due to excess calories, I10 - Essential (primary) hypertension Lipid Panel 06/16/23 E11.9 - Type 2 diabetes mellitus without complications, E66.01 - Morbid (severe) obesity due to excess calories, I10 - Essential (primary) hypertension Type and Screen 06/16/23 E11.9 - Type 2 diabetes mellitus without complications, E66.01 - Morbid (severe) obesity due to excess calories, I10 - Essential (primary) hypertension C Reactive Protein 06/16/23 E11.9 - Type 2 diabetes mellitus without complications, E66.01 - Morbid (severe) obesity due to excess calories, I10 - Essential (primary) hypertension Partial Thromboplastin Time 06/16/23 E11.9 - Type 2 diabetes mellitus without complications, E66.01 - Morbid (severe) obesity due to excess calories, I10 - Essential (primary) hypertension Vitamin B12 06/16/23 E11.9 - Type 2 diabetes mellitus without complications, E66.01 - Morbid (severe) obesity due to excess calories, I10 - Essential (primary) hypertension PTHI 06/16/23 E11.9 - Type 2 diabetes mellitus without complications, E66.01 - Morbid (severe) obesity due to excess calories, I10 - Essential (primary) hypertension Vitamin D 25-OH Total 06/16/23 E11.9 - Type 2 diabetes mellitus without complica tions, E66.01 - Morbid (severe) obesity due to excess calories, I10 - Essential (primary) hypertension TSH reflex Free T4 06/16/23 E11.9 - Type 2 diabetes mellitus without c omplications, E66.01 - Morbid (severe) obesity due to excess calories, I10 - Essential (primary) hypertension Hemoglobin A1c 06/16/23 E11.9 - Type 2 diabetes mellitus without complications, E66.01 - Morbid (severe) obesity due to excess calories, I10 - Essential (primary) hypertension Prothrombin Time INR 06/16/23 E11.9 - Type 2 diabetes mellitus without complications, E66.01 - Morbid (severe) obesity due to excess calories, I10 - Essential (primary) hypertension Vitamin A 06/16/23 E11.9 - Type 2 diabetes mellitus without complications, E66.01 - Morbid (severe) obesity due to excess calories, I10 - Essential (primary) hypertension Vitamin B1 06/16/23 E11.9 - Type 2 diabetes mellitus without complications, E66.01 - Morbid (severe) obesity due to excess calories, I10 - Essential (primary) hypertension Complete Blood Count Auto Diff 06/16/23 E11.9 - Type 2 diabetes mellitus without complications, E66.01 - Morbid (severe) obesity due to excess calories, I10 - Essential (primary) hypertension Ferritin 06/16/23 E11.9 - Type 2 diabetes mellitus without complications, E66.01 - Morbid (severe) obesity due to excess calories, I10 - Essential (primary) hypertension Zinc 06/16/23 E11.9 - Type 2 diabetes mellitus without complications, E66.01 - Morbid (severe) obesity due to excess calories, I10 - Essential (primary) hypertension Medications: New polyethylene glycol 3350 (Miralax) Take 7 packets 2 days before surgery and 7 packets 1 day before surgery. Mix each packet with 8 oz's of water before joseline angelita. 14 packets 0RF ondansetron HCl 4 mg PO Q6H PRN 20 tabs 0RF nausea and vomiting pantoprazole 40 mg PO QAM 30 days 30 tabs 2RF sucralfate 10 mL PO BID 30 days 600 mL 2RF acetaminophen 500 mg (15 mL) PO Q6H PRN 237 mL 2RF fever or pain Coding Level of Care Code Est Pt Level 4 (36340) Diagnoses Morbid obesity E66.01 HTN (hypertension), benign I10 Diabetes mellitus E11.9 Hx of umbilical hernia repair Z98.890; Z87.19 Hx of cholecystectomy Z90.49
[2023-06-17 10:10] VITALS: BP 134/74; PULSE 86; TEMP 36.4; O2SAT 100; BMI 43.3
== END 2023-06-17 11:04 | disposition home or self-care (01) ==
PROVIDERS: Visit Provider Surgery
DX: E66.01 Morbid (severe) obesity due to excess calories (principal); Z68.41 Body mass index [BMI] 40.0-44.9, adult
CPT/HCPCS: 99214

== ENCOUNTER → 2023-06-17 09:57 | Outpatient (BNVA) | payer OTHER, SELFPAY | PROVIDERS: Visit Provider Surgery | DX: E66.01 Morbid (severe) obesity due to excess calories (principal); I10 Essential (primary) hypertension; E11.9 Type 2 diabetes mellitus without complications ==

== ENCOUNTER 2023-06-28 10:40 | Outpatient (REF) | payer OTHER, SELFPAY ==
[2023-06-28 12:15] LABS: Magnesium 1.9 mg/dL (1.6-2.6); Potassium 3.3 mmol/L (3.3-5.1)
== END 2023-06-28 10:41 | disposition home or self-care (01) ==
LOC: HO.LAB 10:40
PROVIDERS: Visit Provider Surgery
DX: E87.6 Hypokalemia (principal); E11.9 Type 2 diabetes mellitus without complications; I10 Essential (primary) hypertension; E66.01 Morbid (severe) obesity due to excess calories
CPT/HCPCS: 36415; 83735; 84132

== ENCOUNTER 2023-06-29 06:09 | Inpatient (IN) | payer OTHER, SELFPAY ==
[2023-06-22 09:27] VITALS: BMI 42.5
[2023-06-27 09:22] LABS: MANUAL DIFF FLAG NO
[2023-06-27 09:29] LABS: INTERNATIONAL NORM RATIO 1.1 (0.9-1.1); Prothrombin Time 12.8 SEC (11.1-13.3)
[2023-06-27 09:32] LABS: Partial Thromboplastin Time 34.3 SEC (26.0-36.4)
[2023-06-27 10:03] LABS: Basophils Percent Auto 0.6 % (0-2); Eosinophils Absolute Auto 0.1 X10*3/uL (0.0-0.4); Eosinophils Percent Auto 0.9 % (0-4); Hematocrit 36.4 % (37.0-47.0); Hemoglobin 11.5 g/dl (12.0-16.0); Imm Gran Abs Auto 0.02 X10*3/uL (0.00-0.03); Imm Gran Pct Auto 0.4 % (0.0-0.4); Lymphocytes Absolute Auto 2.1 X10*3/uL (1.2-4.9); Lymphocytes Percent Auto 38.3 % (20-40); Mean Corpuscular HGB Conc 31.6 g/dl (31.0-35.0); Mean Corpuscular Hemoglobin 22.9 pg (27.0-33.0); Mean Corpuscular Volume 72.5 fL (80.0-98.0); Mean Platelet Volume 10.5 fL (9.4-12.3); Monocytes Absolute Auto 0.4 X10*3/uL (0.1-1.2); Monocytes Percent Auto 7.6 % (2-11); Neutrophils Absolute Auto 2.8 x10*3/uL (2.0-8.3); Neutrophils Percent Auto 52.2 % (45-73); Platelet Count 276 X10*3/uL (160-400); Red Blood Count 5.02 X10*6/uL (4.20-5.50); White Blood Count 5.4 X10*3/uL (4.8-10.8)
[2023-06-27 10:04] LABS: Estimated Average Glucose 114 mg/dL; Hemoglobin A1c % 5.6 % (<6.0)
[2023-06-27 10:32] LABS: Alanine Aminotransferase 38 U/L (0-31); Albumin Level 4.3 g/dL (3.5-5.0); Alkaline Phosphatase 38 U/L (39-117); Anion Gap 14 (12-20); Aspartate Amino Transferase 35 U/L (5-31); Bilirubin Total 0.7 mg/dL (0.0-1.0); Blood Urea Nitrogen 14 mg/dL (9-16); C Reactive Protein 0.46 mg/dL (< or = 0.50); Calcium 9.9 mg/dL (8.4-10.2); Carbon Dioxide 26 mmol/L (22-29); Chloride 102 mmol/L (96-108); Cholesterol 131 mg/dL (<200); Creatinine Clr Calc Pharmacy 117.2; Estimated Glomerular Filt Rate > 60; Glucose Random 82 mg/dL (60-115); HDL Cholesterol 33 mg/dL (>40); Iron 52 mcg/dL (30-160); LDL Cholesterol Calculated 84 mg/dL (<100); Percent Iron Saturation 21 % (15-50); Potassium 2.9 mmol/L (3.3-5.1); Sodium 139 mmol/L (135-145); Total Iron Binding Capacity 248 mcg/dL (228-428); Total Protein 7.5 g/dL (6.5-8.0); Triglycerides 71 mg/dL (<150); Unsaturated Iron Binding 196 ug/dL
[2023-06-27 10:49] LABS: Ferritin 164 ng/mL (10-250); TSH reflex Free T4 1.06 uIU/mL (0.32-4.0); Vitamin D 25-OH Total 64.9 ng/mL (>30)
[2023-06-27 10:51] LABS: Vitamin B12 > 2000 pg/mL (200-900)
--- NOTE | 2023-06-27 13:22 | P.CONAN_ITS ---
HPI - Anesthesia Eval Consult details Narrative: 42yo F for Gastrectomy Sleeve,EGD,poss diaphragmatic hernia,poss ventral hernia,poss open, Covid + 06/20/23. OK to proceed 06/29/23 per ID. Low K with preop labs. Surgeon aware. Will repeat DOS. PMFSH Active Problems All Active Problems (Updated 06/22/23 @ 09:13 by Patricia Meza, RN) Diabetes mellitus (Acute) Pre-op evaluation (Acute) HTN (hypertension), benign (Acute) Morbid obesity (Acute) Hx of cholecystectomy (Acute) Hx of umbilical hernia repair (Acute) Past Medical History Medical History (Updated 06/22/23 @ 09:14 by Patricia Meza, RN) Diabetes Anemia COVID-19 Asthma Murmur HTN (hypertension) Family History Family History Mother Diabetes Father No problems noted. Surgical History Surgical History (Updated 06/22/23 @ 09:13 by Patricia Meza, RN) Hx of varicose vein stripping History of removal of ovarian cyst Hx of cholecystectomy Hx of myomectomy Hx of umbilical hernia repair Social History Social History Are you a primary senior caregiver to a significant other at home: No Do you presently have visiting nurse or other home services: No Alcohol intake: never Patient Tobacco Use Status: Never used Tobacco Meds Allergies Allergy/AdvReac Type Severity Reaction Status Date / Time No Known Allergies Allergy Verified 06/17/23 10:04 Home Medications Medication Instructions Recorded Confirmed Last Taken Type hydrochlorothiazide 12.5 mg tablet 12.5 mg PO DAILY 02/17/23 06/22/23 Unknown History metformin 500 mg tablet 500 mg PO DAILY 02/17/23 06/22/23 Unknown History ferrous sulfate 325 mg (65 mg 325 mg PO DAILY 06/22/23 06/22/23 Unknown History iron) tablet (iron) multivitamin 1 tab PO DAILY 06/22/23 06/22/23 Unknown History Exam Height,Weight and Vital Signs: Height 5 ft 3 in Weight 108.862 kg Pertinent Lab Results Pertinent Lab Results: Laboratory Tests 06/27/23 09:13 WBC 5.4 RBC 5.02 Hgb 11.5 L Hct 36.4 L MCV 72.5 L MCH 22.9 L MCHC 31.6 RDW 15.0 Plt Count 276 MPV 10.5 Immature Gran % (Auto) 0.4 Neut % (Auto) 52.2 Lymph % (Auto) 38.3 [place] % (Auto) 7.6 Eos % (Auto) 0.9 Baso % (Auto) 0.6 Lymph # (Auto) 2.1 [place] # (Auto) 0.4 Eos # (Auto) 0.1 Baso # (Auto) 0.0 Abs Immat Gran (auto) 0.02 Absolute Neuts (auto) 2.8 Absolute Nucleated RBC 0.000 Nucleated RBC % (auto) 0.0 PT 12.8 INR 1.1 APTT 34.3 Sodium 139 Potassium 2.9 L Chloride 102 Carbon Dioxide 26 Anion Gap 14 BUN 14 Creatinine 0.74 Estim Creat Clear Calc 117.2 Estimated GFR > 60 Random Glucose 82 Estimat Average Glucose 114 Hemoglobin A1c % 5.6 Calcium 9.9 Iron 52 TIBC 248 % Saturation 21 Unsat Iron Binding 196 Ferritin 164 Total Bilirubin 0.7 AST 35 H ALT 38 H Alkaline Phosphatase 38 L C-Reactive Protein 0.46 Total Protein 7.5 Albumin 4.3 Triglycerides 71 Cholesterol 131 LDL Cholesterol, Calc 84 HDL Cholesterol 33 L Vitamin B12 > 2000 H 25-OH Vitamin D Total 64.9 TSH 1.06 Narrative Narrative: EKG 03/2023 Vent. Rate : 068 BPM Atrial Rate : 068 BPM P-R Int : 180 ms QRS Dur : 102 ms QT Int : 412 ms P-R-T Axes : 029 -23 005 degrees QTc Int : 438 ms Normal sinus rhythm with sinus arrhythmia Incomplete right bundle branch block Minimal voltage criteria for LVH, may be normal variant ( R in aVL ) Borderline ECG No previous ECGs available Assessment and Plan Assessment Anesthesia Assessment: Chart Reviewed
[2023-06-29] VITALS (20 sets, daily range): BP systolic 107–167; BP diastolic 61–94; PULSE 67–93; RESP 16–24; TEMP 36.2–36.9; O2SAT 96–100; BMI 42.2
--- NOTE | 2023-06-29 06:30 | MHC.SHP ---
Pre-Procedural Eval Section A Date of Service: 06/29/23 The patient is an INPATIENT: Yes The History & Physical has been completed within 30 days and I have reviewed it.: Yes Section B Chief Complaint: Morbid (severe) obesity due to excess calories Allergies: Allergies Allergy/AdvReac Type Severity Reaction Status Date / Time No Known Allergies Allergy Verified 06/29/23 06:26 Plan I have reviewed the history and physical and performed a pertinent physical examination on my patient. No changes have occurred unless specified. Time Spent With Patient Time: Total time managing care of this patient today ____ minutes.
--- NOTE | 2023-06-29 06:30 | W.PM.OPN ---
Operative Note Operative Note Date of Service: 06/29/23 Narrative: Preop diagnosis: [Obesity, hypertension, type 2 diabetes] Postop diagnosis: [Same, hepatomegaly] Procedure: [Laparoscopic sleeve gastrectomy, gastropexy, intraoperative upper endoscopy] Surgeon: Khurram Velasquez MD, [facility], [facility] Assist: [Padmini Villarreal PA-C] Anesthesia: [GET, local Marcaine, 0.5% plain] Estimated blood loss: [5cc] Specimen: [1) Phrenoesophageal fat pad; 2) portion of stomach with fundus] Intraoperative findings: [Grossly no hiatal hernia was appreciated, liver was enlarged and floppy, grossly normal stomach and expected intraoperative upper endoscopy with uniform caliber and no bleeding. No bubbles were noted intraoperatively during upper endoscopy] Indications: [The patient is a 42-year-old woman with a history of type 2 diabetes identified with a hemoglobin A1c of 7.0, hypertension who entered the surgical weight loss program 02/17/2023 with a weight of 286.4 lb/BMI 50.7. She had failed multiple medical weight loss options and was interested in bariatric surgery. After Education regarding the importance of healthy lifestyle changes including diet and exercise, the patient demonstrated understanding with resultant weight loss. Her weight loss also demonstrated improvement in her hemoglobin A1c. The option of continued medical weight loss versus laparoscopic sleeve gastrectomy or laparoscopic gastric bypass was discussed with the patient. She seemed understand her options and wanted to proceed with a laparoscopic sleeve gastrectomy, possible hiatal hernia repair, intraoperative upper endoscopy, possible ventral hernia repair. I reviewed the inherent risks of this procedure which include, but are not limited to: Bleeding that could require another operation or blood transfusion; the inherent risks of transfusion reaction infectious disease from blood transfusions; the risk of staple line leaks that could cause sepsis, multi-system organ failure and ; the risk of mesenteric or deep vein thrombosis of the lower extremities that could cause a fatal pulmonary embolism was reviewed; the risk of GERD that could require conversion to gastric bypass was discussed; the risk of recurrent hiatal hernia, especially in the setting of weight regain was reviewed. The risk of weight regain if maladaptive eating and sedentary behavior continue was discussed. The importance of proper diet and increased activity to augment surgical weight loss and the fact that no operation would result in weight loss of poor dietary decisions and sedentary behavior are resumed were discussed at length and apparently understood. The patient had the option of having a battery charger tester present and declined this option. Her was present for discussion his questions seemed to be satisfactorily answered. CONFIDENTIAL: Private discussion with the patient including the possible risks of blood transfusion was performed in private in the office. Patient noted her is a Yarsanism and, if a blood transfusion is required to save her life, the risks of transfusion reaction, infectious disease was discussed and at that visit, she stated that she would consent. At the follow-up visit, the patient's noted he would prefer that she not be transfused for spiritism reasons and she initialed the consent confirming this request. However, the patient and her noted they would engage in a discussion regarding transfusion in the event of a life-threatening bleed.] Procedure: [ The patient was identified in the preoperative holding area by myself and again in the operating suite 6 by myself and the OR team. Patient was placed supine on the operating table. Safety straps were utilized and a footboard utilized. The patient was induced in general endotracheal anesthesia administered with excellent effect. An appropriate time-out was performed. The patient's abdomen was then widely prepped and draped in the usual manner for surgery using chlorprep. Antibiotics per protocol were administered by Anesthesia. After infiltrating preemptive local in the skin and subcutaneous tissues in the left upper quadrant, a stab incision was made sharply in the left subcostal abdomen and the Veress needle inserted without incident. An appropriate drop test was performed then a pneumoperitoneum of 15 mmHg was obtained using carbon dioxide. Opening pressures were 6 mmHg. Next, a 5 mm 0 degree scope over a 5 mm Optiview trocar was used to access the abdomen via the epigastric incision in the midline. Once the abdomen was entered, the the trocar obturator was removed and the laparoscope was used to confirm there was no injury from the Veress needle nor trocar insertion injury to the bowel or mesentery, then the scope was switched to a 5 mm 45 degree laparoscope. Next, using preemptive local, additional 5 mm trocars were placed under direct laparoscopic vision on the patient's left abdomen, then right and the 5 mm midline trocar upsized to a 12 mm to accommodate the stapler. The patient was then positioned in reverse Trendelenburg and the liver retractor deployed through the right lateral 5 mm trocar and secured. A 40 Sinhala ViSiGi bougie was inserted by Anesthesia per os and advanced to the stomach to decompress. It was then withdrawn to the GE junction all under direct laparoscopic vision. Dissection was begun along the greater curvature using the 5 mm [place] LigaSure for hemostasis and continued to the left jovita of the diaphragm. Dissection was then carried towards the pylorus to 3-4 cm from the pylorus and retro gastric adhesions lysed. The gastroesophageal fat pad was carefully mobilized taking care to avoid injury to the esophagus and stomach and dissection carried towards the short gastrics taking care to avoid injury to the spleen and splenic artery. The diaphragmatic hiatus was carefully examined for a hernia, and no apparent hernia was appreciated. Next, the 40 Fr ViSiGi bougie was advanced by anesthesia under direct vision and laparoscopic guidance and positioned in the antrum approximately 3 cm from the pylorus using laparoscopic graspers to serve as a guide for a stapled sleeve gastrectomy. Stapling was performed with [employer] power stapler Endo-MENDEL stapler with a purple 45 and 60 loads as needed to keep the sleeve morphology uniform. The bougie served as a guide to maintain the same sleeve caliber to avoid stricture & sleeve distortion. The 10 mm clip account development executive was used to apply additional clips to the staple line. Care was taken to be sure that the sleeve laid flat and was without stricture. Once the sleeve was complete, the portion of stomach was placed in the lower abdomen to be sent for removal and permanent section. The staple line, gastrocolic omentum, spleen and short gastric areas were all inspected for hemostasis which was found to be good. The ViSiGi bougie used for a leak test by reducing the reverse Trendelenburg and instilling sterile saline. Next, the bougie was withdrawn under laparoscopic vision used to suction the esophagus and hypopharynx and then discarded. After inspecting again for hemostasis, a gastropexy was performed using 2-0 Polysorb suture to secure the sleeve gastrectomy to the gastrocolic omentum with intracorporeal suturing technique. Next, I broke scrub perform an on-table upper endoscopy to assess the sleeve and the esophagus and stomach. The patient was returned to neutral position and the Olympus 160 gastroscope was advanced per os taking care to preserve the endotracheal tube. The esophagus was intubated without incident. Minimal air was insufflated and the scope advanced into the newly formed sleeve. The staple line was inspected for hemostasis and the morphology of the sleeve appeared straight with a uniform diameter. Intraoperatively, there was no evidence of staple line leak seen during laparoscopy as air was insufflated via endoscope. The scope was then used to aspirate the air from the sleeve withdrawn and removed. I then rescrubbed to return to the operative field and again inspected the field for hemostasis. After final assessment for hemostasis, the patient was returned to neutral position, a Connie used to withdraw the resected gastric specimen which was sent for permanent section. The fascia of the 12 mm midline was closed using an 0 Polysorb figure of 8 on a suture passer under direct laparoscopic vision. The abdomen was then deflated and all trocars removed. The suture was then tied and the skin closed with 4-0 Monocryl subcuticular sutures. The abdomen was then washed and dried, benzoin and Steri-Strips applied followed by Tegaderms. The patient tolerated the procedure well was then extubated the recover in stable condition. All sponge needle and instrument counts were correct x2. The operation and intraoperative findings as well as postoperative plan were discussed with the patient's , Scottie at her request. He provided his cell phone [phone].]
[2023-06-29 06:33] LABS: Glucose, Whole Blood 86 mg/dL (60-115)
[2023-06-29 06:48] LABS: UPreg QC Valid YES; Urine Pregnancy NEGATIVE (NEGATIVE)
[2023-06-29] MEDS: Aprepitant 32 MG/4.4 ML VIAL IVPUSH (07:06)
[2023-06-29] MEDS: Lactated Ringers 1,000 ML 150 ML IVCONT (07:06)
[2023-06-29 07:09] LABS: Anion Gap 14 (12-20); Carbon Dioxide 27 mmol/L (22-29); Chloride 103 mmol/L (96-108); Potassium 3.3 mmol/L (3.3-5.1); Sodium 141 mmol/L (135-145)
--- NOTE | 2023-06-29 07:30 | HO.ANESPROP2 ---
[facility] Active Problems Active Problems: All Active Problems (Updated 06/27/23 @ 16:21 by Khurram Velasquez MD, [facility], [facility]) Hypokalemia (Acute) Diabetes mellitus (Acute) Pre-op evaluation (Acute) HTN (hypertension), benign (Acute) Morbid obesity (Acute) Hx of cholecystectomy (Acute) Hx of umbilical hernia repair (Acute) Past Medical History Medical History (Updated 06/27/23 @ 16:21 by Khurram Velasquez MD, [facility], [facility]) Diabetes Anemia COVID-19 Asthma Murmur HTN (hypertension) Family History Family History Mother Diabetes Father No problems noted. Family history of problems with anesthesia: No Surgical History Surgical History (Updated 06/22/23 @ 09:13 by Patricia Meza RN) Hx of varicose vein stripping History of removal of ovarian cyst Hx of cholecystectomy Hx of myomectomy Hx of umbilical hernia repair History of Problems with Anesthesia: No Social History (Reviewed 06/17/23 @ 10:18 by Khurram Velasquez MD, [facility], [facility]) Are you a primary care manager cna to a significant other at home: No Do you presently have visiting nurse or other home services: No Alcohol intake: never Patient Tobacco Use Status: Never used Tobacco Use of substances other than those prescribed or required for medical reasons: No Have you been hit, kicked, punched, or otherwise hurt by someone within the past year? If so, by whom?: No Advance Directives: No Advance Directives Information Provided: Yes Advance Directives on File: No Recently lost weight without trying: No Eating poorly because of decreased appetite: No Nutrition Risks: No Nutritional Risk Patient : No : No Poor oral hygiene: Yes (broken tooth right upper) Meds Allergies Allergy/AdvReac Type Severity Reaction Status Date / Time No Known Allergies Allergy Verified 06/29/23 06:34 Active Medications: Current Medications Lactated Ringer's (Lr) 1,000 mls @ 150 mls/hr IVCONT .[id number] TOPHER Last Admin: 06/29/23 07:06 Dose: 150 mls/hr Home Medications Medication Instructions Recorded Confirmed Last Taken Type hydrochlorothiazide 12.5 mg tablet 12.5 mg PO DAILY 07/06/29/23 06/28/23 History metformin 500 mg tablet 500 mg PO DAILY 02/17/23 06/29/23 06/28/23 History ferrous sulfate 325 mg (65 mg 325 mg PO DAILY 06/22/23 06/29/23 06/26/23 History iron) tablet (iron) multivitamin 1 tab PO DAILY 06/22/23 06/29/23 06/26/23 History Exam Height,Weight and Vital Signs: Height 5 ft 3 in Weight 108.136 kg Last Vital Signs Temp 98.4 F 06/29/23 06:30 Pulse 76 06/29/23 06:30 Resp 16 06/29/23 06:30 BP 107/69 06/29/23 06:30 Pulse Ox 97 06/29/23 06:30 O2 Del Method Room Air 06/29/23 06:30 Pertinent Lab Results Pertinent Lab Results: Laboratory Tests 06/27/23 06/28/23 06/29/23 09:13 10:58 06:15 WBC 5.4 RBC 5.02 Hgb 11.5 L Hct 36.4 L MCV 72.5 L MCH 22.9 L MCHC 31.6 RDW 15.0 Plt Count 276 MPV 10.5 Immature Gran % (Auto) 0.4 Neut % (Auto) 52.2 Lymph % (Auto) 38.3 Overton % (Auto) 7.6 Eos % (Auto) 0.9 Baso % (Auto) 0.6 Lymph # (Auto) 2.1 Overton # (Auto) 0.4 Eos # (Auto) 0.1 Baso # (Auto) 0.0 Abs Immat Gran (auto) 0.02 Absolute Neuts (auto) 2.8 Absolute Nucleated RBC 0.000 Nucleated RBC % (auto) 0.0 PT 12.8 INR 1.1 APTT 34.3 Sodium 139 Potassium 2.9 L Chloride 102 Carbon Dioxide 26 Anion Gap 14 BUN 14 Creatinine 0.74 Estim Creat Clear Calc 117.2 Estimated GFR > 60 POC Glucose Random Glucose 82 Estimat Average Glucose 114 Hemoglobin A1c % 5.6 Calcium 9.9 Iron 52 TIBC 248 % Saturation 21 Unsat Iron Binding 196 Ferritin 164 Total Bilirubin 0.7 AST 35 H ALT 38 H Alkaline Phosphatase 38 L C-Reactive Protein 0.46 Total Protein 7.5 Albumin 4.3 Triglycerides 71 Cholesterol 131 LDL Cholesterol, Calc 84 HDL Cholesterol 33 L Vitamin B12 > 2000 H 25-OH Vitamin D Total 64.9 TSH 1.06 Urine Test NEGATIVE Blood Type O Positive Antibody Screen NEGATIVE 06/29/23 06/29/23 06:29 06:53 WBC RBC Hgb Hct MCV MCH MCHC RDW Plt Count MPV Immature Gran % (Auto) Neut % (Auto) Lymph % (Auto) Overton % (Auto) Eos % (Auto) Baso % (Auto) Lymph # (Auto) Overton # (Auto) Eos # (Auto) Baso # (Auto) Abs Immat Gran (auto) Absolute Neuts (auto) Absolute Nucleated RBC Nucleated RBC % (auto) PT INR APTT Sodium 141 Potassium 3.3 Chloride 103 Carbon Dioxide 27 Anion Gap 14 BUN Creatinine Estim Creat Clear Calc Estimated GFR POC Glucose 86 Random Glucose Estimat Average Glucose Hemoglobin A1c % Calcium Iron TIBC % Saturation Unsat Iron Binding Ferritin Total Bilirubin AST ALT Alkaline Phosphatase C-Reactive Protein Total Protein Albumin Triglycerides Cholesterol LDL Cholesterol, Calc HDL Cholesterol Vitamin B12 25-OH Vitamin D Total TSH Urine Test Blood Type Antibody Screen Airway Mallampati Class: I TM Dist: >3cm Neck ROM: Full Loose/Missing/Broken Teeth: No (rrr) Heart: rrr Lungs: clear Assessment and Plan Final Anesthetic Review Family History of Problems with Anesthesia: No History of Problems with Anesthesia: No NPO: Yes ASA Class: II Final Preanesthetic Review: No Changes in Pt Med Stat, Meds/Allgs Chart Reviewed, Consent Obtained/Reviewed and Anes Risks/Benef Reviewed Patient Risk: Intermediate Procedure Risk: Intermediate Anesthetic Plan Anesthetic Plan: GA Disposition: Standard PACU
--- NOTE | 2023-06-29 09:11 | PHA.MEDREC ---
Pharmacy Consult ? Medication Reconciliation Pharmacy has completed the medication reconciliation. Reviewed med rec done by nursing
--- NOTE | 2023-06-29 10:20 | PM.DS ---
DS: Providers Provider Date of Service: 06/30/23 Date of admission: 06/29/23 06:09 Primary care physician: Thuy Khoury MD DS: Summary Hospital Course Hospital Course: ADMITTING DIAGNOSIS: morbid obesity, HTN, DM DISCHARGE DIAGNOSIS: same, s/p laparoscopic sleeve gastrectomy PAST SURGICAL HISTORY: umbillical hernia repair, cholecystectomy PROCEDURE: upper endoscopy, laparoscopic sleeve gastrectomy DISCHARGE SUMMARY: History of Present Illness: The patient is a 42 year-old woman with a BMI of 50.7 kg/m2 and associated co-morbidities as described above. The patient had extensive work-up, lost 42.1 lbs preoperatively and was electively scheduled for laparoscopic, possible open sleeve gastrectomy and gastropexy. Risks and complications of the surgery were discussed with the patient in advance, particularly the possibility of , pulmonary embolism, anastomotic leak, bleeding, bowel injury, GERD, cardiac, renal or pulmonary complications. The patient understood all the risks and was in agreement with the surgical plan. Hospital Course: The patient underwent an uneventful laparoscopic sleeve gastrectomy with gastropexy on the day of admission. Postoperatively, the patient was transferred to the surgical floor. The patient received IV Acetaminophen and IV dilaudid for pain control. Patient was started on bariatric phase 1 diet POD #0. On postoperative day one, the patient was feeling well without nausea, vomiting, fevers, or tachycardia. The patient had some mild incisional pain and the abdomen was soft. On the morning of postoperative day one, the patient was continued on 1 ounce of water or ice every half hour. During the day, the patient did fairly well, having some incisional pain, but able to ambulate adequately and to tolerate liquids well. Since the patient is doing well, we decided that the patient was ready to be discharged. The patient was given instructions to follow-up with me next week and to call my office for any fever over 101, persistent abdominal pain, nausea, vomiting, GERD, symptoms of DVT such as calf tenderness, or leg swelling, or pulmonary embolism such as chest pain or shortness of breath. The patient was also instructed to drink 40-60 ounces of liquids per day using the 1-ounce cups. The patient had been given prescriptions for Tylenol for pain, Zofran prn for nausea, and pantoprazole and carafate previously. The patient was encouraged to ambulate and use the incentive spirometer. The patient was allowed to shower, but no baths, and encouraged to stay active at home. All of these instructions were given to the patient personally. All questions were answered and the patient understood all instructions, the instructions were also given to the patient in print. Time Attestation Discharge coordination time: Less than 30 minutes Quality: Safe Use of Opioids Does Pt have an Active Cancer Diagnosis on the Problem List?: No Quality: Stroke Does the patient have a stroke diagnosis?: No Physical Exam Vital Signs: Vital Signs: Last Vital Signs Temp 98.0 F 06/29/23 10:13 Pulse 93 06/29/23 10:13 Resp 20 06/29/23 10:13 BP 123/71 06/29/23 10:13 Pulse Ox 98 06/29/23 10:13 O2 Del Method Simple Mask 06/29/23 10:13 O2 Flow Rate 4 06/29/23 10:13 BMI result Body Mass Index 42.2 DS: Data Data Completed and Pending Pending studies at discharge: Pending at discharge 06/29/23 10:00 Surgical [PTH] Routine Labs on day of discharge: Laboratory Results - last 24 hr 06/28/23 06/29/23 06/29/23 10:58 06:15 06:29 Sodium Potassium Chloride Carbon Dioxide Anion Gap POC Glucose 86 Urine Test NEGATIVE Blood Type O Positive Antibody Screen NEGATIVE 06/29/23 06:53 Sodium 141 Potassium 3.3 Chloride 103 Carbon Dioxide 27 Anion Gap 14 POC Glucose Urine Test Blood Type Antibody Screen Discharge Plan Discharge Anticipated Discharge Date/Time: 06/30/23 10:17 Patient Disposition: Home, Self-Care Discharge Diagnosis: s/p sleeve gastrectomy Referrals: Thuy Khoury MD [Primary Care Provider] - 1 Week Discharge Medications: Continued pantoprazole 40 mg tablet,delayed release (DR/EC) 40 mg PO DAILY@0630 ondansetron HCl 4 mg tablet 4 mg PO Q6H PRN (Reason: nausea and vomiting) Qty: 20 0RF acetaminophen 500 mg/15 mL liquid 500 mg PO Q6H PRN (Reason: fever or pain) Qty: 237 2RF sucralfate [Carafate] 1 gram tablet 1 g PO BID Qty: 90 0RF Rx Instructions: dissolve one table in 15cc warm water and drink every 12 hrs Discontinued multivitamin Tablet 1 tab PO DAILY ferrous sulfate [iron] 325 mg (65 mg iron) Tablet 325 mg PO DAILY hydrochlorothiazide 12.5 mg tablet 12.5 mg PO DAILY metformin 500 mg tablet 500 mg PO DAILY Discharge Orders: Discharge Order (Routine); Ordered 06/30/23 Ordered By: Padmini Villarreal Activity on Discharge: No heavy lifting Stand Alone Forms: Patient Portal Discharge page Other Ambulatory Orders: Potassium (Routine) Timeframe: 20230628 Location: Determined by Patient Ordered By: Khurram Velasquez Magnesium (Routine) Timeframe: 20230628 Location: Determined by Patient Ordered By: Khurram Velasquez Care Plan Goals: weight loss Health Concerns: morbid obesity Plan of Treatment: 1. Please call your doctor or come back to the emergency room should any new symptoms arise. 2. Activity: You may shower. No tub baths, sex or returning to work until discussed at first post op appointment. No exercise, alcohol, tobacco or illegal drug use. 3. Diet: continue as discussed with bariatric team.. 4. Dressing Change/Wound Care: Do not change or remove surgical dressings unless they are wet or soiled. 5. Call your doctor if: - Your temperature exceeds 101.5 F - You experience excessive pain or swelling - You have an unexpected reaction to medication - You have excessive bleeding - You experience continued vomiting/nausea - Your incision begins to separate - Your incision shows signs of infection such as increased redness, swelling, excessive pain, heat, or drainage (light blood or clear fluid is normal) 6. Continue to use incentive spirometer hourly while awake. Walk in home for 5- 10 minutes every 2 hours during the first week. The patient's medical history has been reviewed and they are considered low risk for post op DVT and therefore DVT prophylaxis is not considered necessary. Travel after surgery was reviewed. The patient has not disclosed any travel plans during the first 30 days after surgery and they have been advised that within the first 30 days after surgery any bus, plane, train or car travel over 2 hours in duration is contraindicated due to the possibility of developing blood clots from immobility. Any travel, needs to include periods of ambulation of 10 minutes in duration every 2 hours. The patient was instructed to discuss any plans for travel during this period with their bariatric surgeon. 7. General instructions: No lifting greater than 5 lbs for 1 week and not more than 20lbs the next 3?weeks. No driving until seen at the office in 5-7 days after surgery. Please walk around your home every hour or two to prevent blood clots from forming in your legs. Please follow the post op diet instructions you are?given by the bariatric team.?If you have any issues or concerns or questions please call the office/answering service to speak with the bariatric provider water pollution scientist.? The Celebrate shakes have all of the bariatric vitamins that you need. If you are drinking other protein shakes, you will need to purchase the Celebrate multivitamins and calcium that are available in the hospital gift shop.??Do not take any new medications without first discussing this with the bariatric team. Please make sure you are consuming at least 40 ounces of fluids per day starting the?day AFTER your discharge from the hospital. Each one ounce cup represents 6 sips. If you drink faster you may experience?bloating,?gas pain, burping, nausea or heartburn. Do not hesitate to contact the office with any questions at . Assessment: stable post op sleeve gastrectomy
[2023-06-29] MEDS: fentaNYL citrate/PF 100 MCG/2 ML VIAL 25 MCG IVPUSH ×4 (10:27→11:07)
[2023-06-29] MEDS: ondansetron HCL 4 MG/2 ML VIAL IVPUSH (10:45)
[2023-06-29 11:18] LABS: Hematocrit 34.2 % (37.0-47.0); Hemoglobin 10.9 g/dl (12.0-16.0)
[2023-06-29 11:27] LABS: Anion Gap 14 (12-20); Blood Urea Nitrogen 15 mg/dL (9-16); Calcium 9.8 mg/dL (8.4-10.2); Carbon Dioxide 24 mmol/L (22-29); Chloride 106 mmol/L (96-108); Estimated Glomerular Filt Rate > 60; Glucose Random 142 mg/dL (60-115); Potassium 3.1 mmol/L (3.3-5.1); Sodium 141 mmol/L (135-145)
--- NOTE | 2023-06-29 12:05 | PC.NURSE ---
Pt up to unit, on RA, states she is tired VSS, call ricks within reach, continue to monitor for needs.
[2023-06-29] MEDS: ceFAZolin Sodium/Dextrose,Iso 2 GM/50 ML PIGGYBACK IV (12:48)
[2023-06-29] MEDS: Famotidine/PF 20 MG/2 ML VIAL IVPUSH ×2 (12:48→21:06)
[2023-06-29] MEDS: Lactated Ringers 1,000 ML 100 ML IVCONT ×2 (12:48→21:04)
--- NOTE | 2023-06-29 13:01 | PM.PNGS ---
Subjective Subjective Date of Service: 06/29/23 Patient reports: no new complaints and still having pain Interval history: The patient is seen on [facility] 3 in room 372. She is somnolent reports expected incisional pain and minimal nausea but no vomiting. She denies any chest pain or shortness of breath. Her is at the bedside and his questions were answered at her request. Physical Exam Vital Signs: Vital Signs: Last Vital Signs Temp 97.2 F 06/29/23 12:01 Pulse 75 06/29/23 12:01 Resp 20 06/29/23 12:01 BP 145/75 H 06/29/23 12:01 Pulse Ox 97 06/29/23 12:01 O2 Del Method Room Air 06/29/23 12:01 O2 Flow Rate 2 06/29/23 11:35 BMI result Body Mass Index 42.2 On exam she is somnolent but nontoxic She is having no respiratory difficulty Abdominal binder is intact with expected incisional tenderness Objective Data Active Medications Famotidine (Famotidine/Pf 20 Mg/2 Ml Vial) 20 mg IVPUSH BID [facility] Last Admin: 06/29/23 12:48 Dose: 20 mg Documented By: RANDI Hydromorphone HCl (Hydromorphone Hcl 0.5 Mg/0.5 Ml Syringe) 0.25 mg IVPUSH Q4H PRN; Protocol PRN Reason: Pain, Moderate(Pain Scale 4-6) Lactated Ringer's (Lr) 1,000 mls @ 150 mls/hr IVCONT .Q6H40M [facility] Last Infusion: 06/29/23 12:55 Dose: Infused Documented By: ARNDI Lactated Ringer's (Lr) 1,000 mls @ 100 mls/hr IVCONT .Q10H [facility] Last Admin: 06/29/23 12:48 Dose: 100 mls/hr Documented By: RANDI Cefazolin Sodium/Dextrose (Ancef) 2 gm in 50 mls @ 100 mls/hr IV POSTOP ONE Stop: 06/29/23 14:09 Last Admin: 06/29/23 12:48 Dose: 100 mls/hr Documented By: RANDI Acetaminophen (Ofirmev) 1,000 mg in 100 mls @ 16.7 mls/hr IV .Q6H [facility] Potassium Chloride (Potassium Chloride/H20) 10 meq in 100 mls @ 100 mls/hr IV Q1H [facility] Stop: 06/29/23 14:59 Metoclopramide HCl (Metoclopramide Hcl 10 Mg/2 Ml Vial) 10 mg IVPUSH Q6H PRN PRN Reason: Nausea Ondansetron HCl (Ondansetron Hcl 4 Mg/2 Ml Vial) 4 mg IVPUSH Q8H PRN PRN Reason: Nausea Sodium Chloride (0.9 % Sodium Chloride Flush 3 Ml Syringe) 3 ml IVFLUSH QSHIFT [facility] Labs 06/29/23 11:10 06/29/23 11:10 Labs: Laboratory Results - last 24 hr 06/29/23 06/29/23 06/29/23 06:15 06:29 06:53 Anion Gap 14 Estim Creat Clear Calc Estimated GFR POC Glucose 86 Random Glucose Calcium Urine Test NEGATIVE 06/29/23 11:10 Anion Gap 14 Estim Creat Clear Calc 120.0 Estimated GFR > 60 POC Glucose Random Glucose 142 H Calcium 9.8 Urine Test Procedures Date of Service Date of Service: 06/29/23 Progress Note: A&P Assessment and plan (1) S/P laparoscopic sleeve gastrectomy: Status: Acute (2) Diabetes mellitus: Status: Acute (3) HTN (hypertension), benign: Status: Acute (4) Morbid obesity: Status: Acute (5) Hx of cholecystectomy: Status: Acute (6) Hypokalemia: Status: Acute Plan Potassium supplementation has occurred Patient had pre-existing anemia. Continue to monitor with morning labs, continue IV hydration. Patient will get out of bed and also begin sips of water when she is more awake. Patient's confirms that she has celebrate 4 in 1 shakes at home. Time Spent With Patient Time: Total time managing care of this patient today ____ minutes. Quality Stroke Does the patient have a stroke diagnosis?: No VTE Prior VTE?: No VTE Risk Level:: Surgical - moderate VTE Device Contraindication: N/A - Device Ordered VTE Drug Contraindication: Treatment Not Indicated
[2023-06-29] MEDS: Potassium Chloride/H20 10 MEQ/100 ML PIGGYBACK 100 MEQ IV ×2 (13:17→14:39)
[2023-06-29] MEDS: Acetaminophen 1,000 MG/100 ML PIGGYBACK 16.7 MG IV ×2 (13:29→19:06)
--- NOTE | 2023-06-29 13:54 | MHC.CM.PN ---
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
[2023-06-29] MEDS: HYDROmorphone HCl 0.5 MG/0.5 ML SYRINGE 0.25 MG IVPUSH ×2 (15:25→21:14)
[2023-06-29 15:54] LABS: Calcium (PTHI) 9.8 mg/dL (8.6-10.2); PTHI 35 pg/mL (16-77)
[2023-06-29 17:42] LABS: Zinc 81 mcg/dL (60-130)
[2023-06-29] MEDS: 0.9 % Sodium Chloride Flush 3 ML SYRINGE IVFLUSH (21:09)
[2023-06-30] MEDS: Acetaminophen 1,000 MG/100 ML PIGGYBACK 16.7 MG IV ×2 (01:10→06:59)
[2023-06-30 03:59] VITALS: BP 123/76; PULSE 68; RESP 18; TEMP 36.2; O2SAT 96
[2023-06-30] MEDS: ondansetron HCL 4 MG/2 ML VIAL IVPUSH (04:27)
[2023-06-30 06:20] LABS: MANUAL DIFF FLAG NO
[2023-06-30 06:28] LABS: Basophils Percent Auto 0.2 % (0-2); Hematocrit 31.8 % (37.0-47.0); Imm Gran Abs Auto 0.03 X10*3/uL (0.00-0.03); Imm Gran Pct Auto 0.4 % (0.0-0.4); Lymphocytes Absolute Auto 1.7 X10*3/uL (1.2-4.9); Lymphocytes Percent Auto 20.5 % (20-40); Mean Corpuscular HGB Conc 31.4 g/dl (31.0-35.0); Mean Corpuscular Hemoglobin 23.5 pg (27.0-33.0); Mean Corpuscular Volume 74.6 fL (80.0-98.0); Mean Platelet Volume 10.9 fL (9.4-12.3); Monocytes Absolute Auto 0.8 X10*3/uL (0.1-1.2); Monocytes Percent Auto 10.1 % (2-11); Neutrophils Absolute Auto 5.6 x10*3/uL (2.0-8.3); Neutrophils Percent Auto 68.8 % (45-73); Platelet Count 252 X10*3/uL (160-400); Red Blood Count 4.26 X10*6/uL (4.20-5.50); Red Cell Distribution Width 15.4 % (11.0-16.0); White Blood Count 8.2 X10*3/uL (4.8-10.8)
[2023-06-30 06:40] LABS: Anion Gap 14 (12-20); Blood Urea Nitrogen 7 mg/dL (9-16); Calcium 9.4 mg/dL (8.4-10.2); Carbon Dioxide 27 mmol/L (22-29); Chloride 105 mmol/L (96-108); Creatinine Clr Calc Pharmacy 118.3; Estimated Glomerular Filt Rate > 60; Glucose Random 77 mg/dL (60-115); Potassium 3.3 mmol/L (3.3-5.1); Sodium 143 mmol/L (135-145)
[2023-06-30] MEDS: Lactated Ringers 1,000 ML 100 ML IVCONT (07:00)
[2023-06-30 08:00] VITALS: BP 148/77; PULSE 72; RESP 18; TEMP 36.6; O2SAT 98
--- NOTE | 2023-06-30 09:00 | PM.PNGS ---
Subjective Subjective Date of Service: 06/30/23 Interval history: POD # 1 s/p LSG with Dr Velasquez. Pt sates minimal abd pain, relieved with pain medications, ambulating, voiding easily and tolerating phase 1 diet. USign ICS regualry and feels ready to go home today. Physical Exam Vital Signs: Vital Signs: Last Vital Signs Temp 98 F 06/30/23 08:00 Pulse 72 06/30/23 08:00 Resp 18 06/30/23 08:00 BP 148/77 H 06/30/23 08:00 Pulse Ox 98 06/30/23 08:00 O2 Del Method Room Air 06/30/23 08:00 O2 Flow Rate 2 06/29/23 11:35 BMI result Body Mass Index 42.2 Const: General: cooperative, healthy appearing and no acute distress Nutritional Appearance: obese GI: Inspection: Yes incision (surgical dressing c/d/i) Palpation (GI): Soft to palpation, nontender and no guarding Extrem: General: Yes no pedal edema and Yes no calf tenderness Objective Data Active Medications Famotidine (Famotidine/Pf 20 Mg/2 Ml Vial) 20 mg IVPUSH BID [facility] Last Admin: 06/29/23 21:06 Dose: 20 mg Documented By: ANNA Hydromorphone HCl (Hydromorphone Hcl 0.5 Mg/0.5 Ml Syringe) 0.25 mg IVPUSH Q4H PRN; Protocol PRN Reason: Pain, Moderate(Pain Scale 4-6) Last Admin: 06/29/23 21:14 Dose: 0.25 mg Documented By: ANNA Lactated Ringer's (Lr) 1,000 mls @ 100 mls/hr IVCONT .Q10H [facility] Last Admin: 06/30/23 07:00 Dose: 100 mls/hr Documented By: ANNA Acetaminophen (Ofirmev) 1,000 mg in 100 mls @ 16.7 mls/hr IV .Q6H [facility] Last Admin: 06/30/23 06:59 Dose: 16.7 mls/hr Documented By: ANNA Metoclopramide HCl (Metoclopramide Hcl 10 Mg/2 Ml Vial) 10 mg IVPUSH Q6H PRN PRN Reason: Nausea Ondansetron HCl (Ondansetron Hcl 4 Mg/2 Ml Vial) 4 mg IVPUSH Q8H PRN PRN Reason: Nausea Last Admin: 06/30/23 04:27 Dose: 4 mg Documented By: ANNA Sodium Chloride (0.9 % Sodium Chloride Flush 3 Ml Syringe) 3 ml IVFLUSH QSHIFT [facility] Last Admin: 06/30/23 07:14 Dose: Not Given Documented By: JOSHUA Non-Admin Reason: IV Running Labs 06/30/23 05:59 06/30/23 05:59 Labs: Laboratory Results - last 24 hr 06/27/23 06/29/23 06/30/23 09:13 11:10 05:59 MCV 74.6 L MCH 23.5 L MCHC 31.4 RDW 15.4 Plt Count 252 MPV 10.9 Immature Gran % (Auto) 0.4 Neut % (Auto) 68.8 Lymph % (Auto) 20.5 [place] % (Auto) 10.1 Eos % (Auto) 0.0 Baso % (Auto) 0.2 Lymph # (Auto) 1.7 [place] # (Auto) 0.8 Eos # (Auto) 0.0 Baso # (Auto) 0.0 Abs Immat Gran (auto) 0.03 Absolute Neuts (auto) 5.6 Absolute Nucleated RBC 0.000 Nucleated RBC % (auto) 0.0 Anion Gap 14 14 Estim Creat Clear Calc 120.0 118.3 Estimated GFR > 60 > 60 Random Glucose 142 H 77 Calcium 9.8 9.4 PTH Intact 35 Calcium (PTH Intact) 9.8 Zinc 81 Procedures Date of Service Date of Service: 06/30/23 Progress Note: A&P Assessment and plan (1) S/P laparoscopic sleeve gastrectomy: Status: Acute Assessment and Plan: POD # 1 s/p LSG - stable and doing well. Pt is tolerating phase 1 diet, all diet phases and medications needed for the first week post op has been reviewed with patient. Anemia is chronic. Will stop Metformin and HCTZ. She will be discharged today, will take BP tomorrow morning and I will call her for results. (2) Diabetes mellitus: Status: Acute Assessment and Plan: stop metformin (3) HTN (hypertension), benign: Status: Acute Assessment and Plan: Take BP daily and report numbers to me. (4) Morbid obesity: Status: Acute Time Spent With Patient Time: Total time managing care of this patient today 25 minutes. Quality Stroke Does the patient have a stroke diagnosis?: No VTE Prior VTE?: No VTE Risk Level:: Surgical - moderate VTE Device Contraindication: N/A - Device Ordered VTE Drug Contraindication: Treatment Not Indicated
--- NOTE | 2023-06-30 09:13 | MHC.CM.PN ---
PT TO DC HOME TODAY WITH NO SERVICES TO TRANSPORT
[2023-07-01 20:13] LABS: Vitamin A 34 mcg/dL (38-98)
[2023-07-02 10:28] LABS: Vitamin B1 12 nmol/L (8-30)
== END 2023-06-30 09:45 | disposition home or self-care (01) | DRG 403 ==
LOC: HO.SSSA 08:21 → HO.S3 10:21
PROVIDERS: Nurse Practitioner; Physician Assistant; Admitting Provider Surgery; PCP Student in an Organized Health Care Education/Training Program; Visit Provider Surgery
PROC: 0DB64Z3 Excision of Stomach, Percutaneous Endoscopic Approach, Vertical (ICD-10-PCS; CPT 43845; principal; 2023-06-29 07:30)
DX: E66.01 Morbid (severe) obesity due to excess calories (principal); R16.0 Hepatomegaly, not elsewhere classified; E11.9 Type 2 diabetes mellitus without complications; E87.6 Hypokalemia; I10 Essential (primary) hypertension; D64.9 Anemia, unspecified; Z68.41 Body mass index [BMI] 40.0-44.9, adult; Z79.899 Other long term (current) drug therapy
CPT/HCPCS: 43775; 43659; 36415; 80048; 80051; 80053; 80061; 81025; 82306; 82607; 82728; 82947; 83036; 83540; 83970; 84425; 84443; 84590; 84630; 85014; 85018; 85025; 85610; 85730; 86140; 86850; 86900; 86901; 88304; 88305; 88307; 88342; C9145; J0131; J0330; J0665; J0690; J1100; J1170; J2250; J2371; J2405; J2550; J2704; J3010; J3480; J7120

== ENCOUNTER → 2023-06-29 06:09 | Outpatient (BNV) | payer OTHER, SELFPAY | PROVIDERS: Admitting Provider Surgery; PCP Student in an Organized Health Care Education/Training Program; Visit Provider Surgery | DX: E66.01 Morbid (severe) obesity due to excess calories (principal); Z68.41 Body mass index [BMI] 40.0-44.9, adult | CPT/HCPCS: 43659; 43775; 99024; 99499 ==

== ENCOUNTER 2023-07-05 10:00 | Outpatient (AMB) | payer OTHER, SELFPAY ==
--- NOTE | 2023-07-05 10:19 | MHC.OFFVISWM ---
Intake VS Expanded 07/05/23 10:44 BP 125/77 Blood Pressure Location Rt brachial Blood Pressure Position Sitting Pulse 64 Pulse Source Pulse Oximeter Temp 97.8 F Temperature Source Tympanic Pulse Oximetry 64 L Height 5 ft 3 in Weight 237 lb 6.4 oz BMI 42.0 Body Fat % 39.6 Body Fat Mass 94.0 Fat Free Mass 143.2 Visceral Fat Rating 11.0 Body Water % 43.1 Body Water Mass 102.2 Muscle Mass/Score 136.0 Basal Metabolic Rate/Score 1,983 Intake Visit Reasons: (OV) 6 Days PO LSG 06/29/23 *ARRIVE AT 10 AM* Allergies No Known Allergies Allergy (Verified 07/05/23 10:56) HPI HPI Comments History of Present Illness Details The patient is a 42-year-old woman with a history of type 2 diabetes identified with a hemoglobin A1c of 7.0, hypertension who entered the surgical weight loss program 02/17/2023 with a weight of 286.4 lb/BMI 50.7. She has lost 49.1 lb since entering the surgical weight loss program. She underwent laparoscopic sleeve gastrectomy without hiatal hernia repair on 06/29/2023 and reports that she is doing well today. She denies any regurgitation, chest pain, difficulty breathing, shortness of breath, GERD. She is passing gas but not has not had a bowel movement since surgery. Written instructions regarding celebrate 4 in 1 meal plan, 4 scoops in 3 shakes were provided. Docusate, 100 mg, 2 tablets b.i.d. was recommended to start today Patient reports that she is only taking about 30 oz of water. The importance of hydration and goal of over 50 cc per 24 hours was discussed. The risks of dehydration including DVT/PE or reviewed. 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 [facility] Medical History Diabetes Anemia COVID-19 Asthma Murmur HTN (hypertension) Surgical History History of laparoscopic partial gastrectomy Hx of varicose vein stripping History of removal of ovarian cyst Hx of cholecystectomy Hx of myomectomy Hx of umbilical hernia repair Family History Mother Diabetes Father No problems noted. (Reviewed 07/05/23 @ 12:06 by Khurram Velasquez MD, JEFF, [facility]) Household Members: Family Housing: House Are you a primary care connector to a significant other at home: No Do you presently have visiting nurse or other home services: No Alcohol intake: never Patient Tobacco Use Status: Never used Tobacco service: No Review of Systems Const All systems reviewed & are unremarkable except as noted in HPI and below Physical Exam Vital Signs: Last Vital Signs BP 125/77 07/05/23 10:44 On exam, she is afebrile and nontoxic She is in good spirits She is anicteric She is having no respiratory distress Her abdomen is soft with no tenderness. Steri-Strips are in place with no evidence of cellulitis or infection. Results Reviewed Results Reviewed: Pathology reviewed with patient demonstrated normal stomach with no Helicobacter or unexpected pathology. Assessment & Plan Assessment & Plan (1) S/P laparoscopic sleeve gastrectomy: Code(s): Z98.84 - Bariatric surgery status (2) Diabetes mellitus: Code(s): E11.9 - Type 2 diabetes mellitus without complications (3) HTN (hypertension), benign: Code(s): I10 - Essential (primary) hypertension (4) Hx of cholecystectomy: Code(s): Z90.49 - Acquired absence of other specified parts of digestive tract (5) Hx of umbilical hernia repair: Comment: with mesh Code(s): Z98.890 - Other specified postprocedural states; Z87.19 - Personal history of other diseases of the digestive system Plan Instructions regarding meal plan reviewed. The patient will continue celebrate 4 in 1 and take for scoops divided in 3 shakes. The importance of staying hydrated and reaching 50 oz of water per day was reviewed. Patient's FMLA forms had previously been completed. Exercise options including walking, stationary bike and treadmill were discussed. Patient is advised regarding the importance of trending exercise/calorie expenditure. Patient reports that when she checks her blood sugars, her results have been fine and she denies any symptoms of hypoglycemia. The importance of trending her blood pressure in sugars was discussed and apparently understood. Patient will follow-up with Padmini Villarreal PA-C in several weeks, see Breonna John before the end of the year. Coding Level of Care Code Global (71932) Diagnoses S/P laparoscopic sleeve gastrectomy Z98.84 Diabetes mellitus E11.9 HTN (hypertension), benign I10 Hx of cholecystectomy Z90.49 Hx of umbilical hernia repair Z98.890; Z87.19
[2023-07-05 10:44] VITALS: BP 125/77; PULSE 64; TEMP 36.6; O2SAT 64; BMI 42.0
== END 2023-07-05 11:55 | disposition home or self-care (01) ==
PROVIDERS: Visit Provider Surgery
DX: Z98.84 Bariatric surgery status (principal); E11.9 Type 2 diabetes mellitus without complications; I10 Essential (primary) hypertension; Z90.49 Acquired absence of other specified parts of digestive tract; Z98.890 Other specified postprocedural states; Z87.19 Personal history of other diseases of the digestive system
CPT/HCPCS: 99024

== ENCOUNTER → 2023-07-05 10:00 | Outpatient (BNVA) | payer OTHER, SELFPAY | PROVIDERS: Visit Provider Surgery ==

== ENCOUNTER 2023-07-25 09:02 | Outpatient (AMB) | payer OTHER, SELFPAY ==
--- NOTE | 2023-07-25 09:03 | A.OFFVIS_ITS ---
Intake VS Expanded 07/25/23 09:06 BP 126/66 Blood Pressure Location Rt brachial Blood Pressure Position Sitting Pulse 82 Pulse Source Pulse Oximeter Temp 98.0 F Temperature Source Temporal Artery Scan Pulse Oximetry 98 Oxygen Delivery Method Room Air Height 5 ft 3 in Weight 227 lb 9.6 oz BMI 40.3 Body Fat % 38.3 Body Fat Mass 87.0 Fat Free Mass 140.4 Visceral Fat Rating 11.0 Body Water % 44.0 Body Water Mass 100.0 Muscle Mass/Score 133.4 Basal Metabolic Rate/Score 1,932 Intake Visit Reasons: (OV) PO LSG 06/29/23 Allergies No Known Allergies Allergy (Verified 07/25/23 09:05) Medication List - Last Reconciled 07/25/23 by Padmini Villarreal PA-C pantoprazole 40 mg PO DAILY@629 sucralfate (Carafate) 1 g PO BID HPI HPI Comments History of Present Illness Details 43 yo woman s/p LSG with Dr Velasquez on now 3 weeks post op. No n/v/abd pain or reflux. 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 Is ready to add protein bar now. WAs taking iron supplements prior to surgery. BM's now normal every 3 days. meal plan: - total fluids per day =48 oz water and 24 oz protein shakes 10am- 4:1 2 scoops 8 oz UAM - over over an hour 2pm - same shake 6pm - 1 scoop Premier powder with UAM Exercise - treadmill speed 2.8, incline 1-3 q 3 mintues - at least 250 calories. COUNT INCLUDES THE [facility] Medical History Diabetes Anemia COVID-19 Asthma Murmur HTN (hypertension) Surgical History History of laparoscopic partial gastrectomy Hx of varicose vein stripping History of removal of ovarian cyst Hx of cholecystectomy Hx of myomectomy Hx of umbilical hernia repair Family History Mother Diabetes Father No problems noted. Social History Household Members: Family Housing: House Are you a primary medicare compliance auditor to a significant other at home: No Do you presently have visiting nurse or other home services: No Alcohol intake: never Patient Tobacco Use Status: Never used Tobacco service: No Physical Exam Const General: cooperative, healthy appearing and no acute distress GI Inspection: Yes incision (all c/d/i) Palpation (GI): Soft to palpation, nontender, no hernias and no masses Assessment & Plan Assessment & Plan (1) S/P laparoscopic sleeve gastrectomy: Code(s): Z98.84 - Bariatric surgery status Plan: Will restart this week, will get up 9am and bed at 1 am. Wants to start a protien bar 10 am- shake 2pm - shake 5pm - shake 8pm bar treadmill now speed 3.0, incline 1 -3, now 300 calories - goal of 2,000 calories week Plan to restart iron supplements in 2 weeks, pt will contact me if needs extra fiber in diet. next appt 3 weeks with me (2) HTN (hypertension), benign: Code(s): I10 - Essential (primary) hypertension Plan: resolved (3) Diabetes mellitus: Code(s): E11.9 - Type 2 diabetes mellitus without complications Plan: resolved Coding Level of Care Code Global (19467) Diagnoses S/P laparoscopic sleeve gastrectomy Z98.84 HTN (hypertension), benign I10 Diabetes mellitus E11.9
[2023-07-25 09:06] VITALS: BP 126/66; PULSE 82; TEMP 36.7; O2SAT 98; BMI 40.3
== END 2023-07-25 09:27 | disposition home or self-care (01) ==
PROVIDERS: Visit Provider Physician Assistant
DX: Z98.84 Bariatric surgery status (principal); I10 Essential (primary) hypertension; E11.9 Type 2 diabetes mellitus without complications
CPT/HCPCS: 99024

== ENCOUNTER → 2023-07-25 09:02 | Outpatient (BNVA) | payer OTHER, SELFPAY | PROVIDERS: Visit Provider Physician Assistant ==

== ENCOUNTER 2023-08-03 09:49 | Outpatient (AMB) | payer OTHER, SELFPAY ==
--- NOTE | 2023-08-03 09:31 | MHC.AMNUTRGE ---
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 Velasquez DEAN weight 292.8 lbs preop weight 238# last weight at 3 wks PO 227# current weight 225# Reason for consult elevated BMI Diet Assmnt Details pt would like to advance diet to include food now 10am 4in1 2 scoops each with unsweetened almond milk 2pm same shake 5:30pm premier shake 9pm fitcruch bar Hydration: 56oz water and tea Exercise: i am burning 300 calories on the treadmill incline 1-5 every 3 minutes speed of 3 ; takes her 45 minutes every day ; i enjoy going every day Dietary counseling reduction Diagnosis Nutrition problem #1 overweight/obesity As related to (etiology) #1 excess energy intake and physical inactivity As evidenced by (sign/symptom) #1 high BMI Monitoring/Goals Nutrition problem monitoring total energy intake, level of knowledge/skill, total PRO intake, total CHO intake and weight Outcome progress progressing Learning/Education Readiness to learn excellent Stages of change action Most Recent Diabetes Results: Cholesterol 131 mg/dL (<200) 06/27/23 HDL Cholesterol 33 mg/dL (>40) L 06/27/23 Triglycerides 71 mg/dL (<150) 06/27/23 Creatinine 0.73 mg/dL (0.5-1.4) 06/30/23 Blood Urea Nitrogen 7 mg/dL (9-16) L 06/30/23 Sodium 143 mmol/L (135-145) 06/30/23 Potassium 3.3 mmol/L (3.3-5.1) 06/30/23 Chloride 105 mmol/L (96-108) 06/30/23 Carbon Dioxide 27 mmol/L (22-29) 06/30/23 Calcium 9.4 mg/dL (8.4-10.2) 06/30/23 AST 35 U/L (5-31) H 06/27/23 ALT 38 U/L (0-31) H 06/27/23 Total Protein 7.5 g/dL (6.5-8.0) 11/20/23 Albumin 4.3 g/dL (3.5-5.0) 06/27/23 [facility] Medical History (Reviewed 07/05/23 @ 12:06 by Khurram Velasquez MD, FACS, [facility]) Diabetes Anemia COVID-19 Asthma Murmur HTN (hypertension) Surgical History History of laparoscopic partial gastrectomy Hx of varicose vein stripping History of removal of ovarian cyst Hx of cholecystectomy Hx of myomectomy Hx of umbilical hernia repair Family History Mother Diabetes Father No problems noted. Social History Household Members: Family Housing: House Are you a primary healthcare administration internship to a significant other at home: No Do you presently have visiting nurse or other home services: No Alcohol intake: never Patient Tobacco Use Status: Never used Tobacco service: No Assessment & Plan Assessment & Plan (1) Obesity (BMI 30-39.9): Code(s): E66.9 - Obesity, unspecified Plan changed plan per pt preference Patient Instructions: 10am 4in1 2 scoops each with 8oz fairlife milk - rec change to fairlife to meet protein needs and allow for her to add in food 2pm same shake? 5:30pm 1oz spanish yogurt, cotttage cheese or scrambled eggs - remember to separate solids and liquids. take 20 minutes , no more than 25 minutes 9pm fitcruch bar? Telehealth Telehealth Location of provider rendering services: practice address Location of patient: address on file Patient Identification confirmed using: Name, : Yes Telehealth method: video Patient verbally consented to treatment: Yes Patient verbally consented to billing insurance company: Yes Patient informed of any privacy concerns related to visit: Yes Minutes spent on Phone/Video with Pt.: 20 Coding Level of Care Code Nutr Indiv Subseq (33659) Diagnoses Obesity (BMI 30-39.9) E66.9 Time Spent (min) 20
[2023-08-03 09:50] VITALS: BMI 39.9
== END 2023-08-03 09:50 | disposition home or self-care (01) ==
LOC: HO.HBS 09:49
PROVIDERS: Visit Provider Dietitian, Registered
DX: E66.9 Obesity, unspecified (principal)

== ENCOUNTER → 2023-08-03 09:49 | Outpatient (BNVA) | payer OTHER, SELFPAY | PROVIDERS: Visit Provider Dietitian, Registered | DX: E66.9 Obesity, unspecified (principal); Z68.39 Body mass index [BMI] 39.0-39.9, adult; E11.9 Type 2 diabetes mellitus without complications; Z71.3 Dietary counseling and surveillance | CPT/HCPCS: 97803 ==

== ENCOUNTER 2023-08-19 10:30 | Outpatient (AMB) | payer OTHER, SELFPAY ==
--- NOTE | 2023-08-19 10:42 | A.OFFVIS_ITS ---
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 But very minimal weight loss recently Wakes at 8am and bed at 1am 10 am - 4:1 shake 2 scoops with Fairlife 8 oz - less than 1 hour 2 pm - same shake 5:30 pm - 1 scrambled egg or 1 oz cottag e cheese/yogurt 9pm - Fit Crunch bar Exercise - 6 d/ week, treadmill speed 3.2 incline 3.5 - 4.5 - espino 350 calories over 45 minutes. Will now star taking Vitron C for anemia. [facility] Medical History (Reviewed 07/05/23 @ 12:06 by Khurram Velasquez MD, FACS, [facility]) Diabetes Anemia COVID-19 Asthma Murmur HTN (hypertension) Surgical History History of laparoscopic partial gastrectomy Hx of varicose vein stripping History of removal of ovarian cyst Hx of cholecystectomy Hx of myomectomy Hx of umbilical hernia repair Family History Mother Diabetes Father No problems noted. Social History Household Members: Family Housing: House Are you a primary landcare facilitator to a significant other at home: No Do you presently have visiting nurse or other home services: No Alcohol intake: never Patient Tobacco Use Status: Never used Tobacco service: No Assessment & Plan Assessment & Plan (1) S/P laparoscopic sleeve gastrectomy: Code(s): Z98.84 - Bariatric surgery status Plan: Needs to sleep 8 hours per night, take iron pills. Meal plan - 10 am - 4:! 2 scoops with water or UAM 2pm- same shake 5:30 - 1 oz fish or chciken or egg - 2 forks 9 pm - bar Exercise - 5d/ week - treadmill - speed 3.0, incline 2 -8 (3 minutes) - 350 calories - 35 minutes. Weights 3 d/week- UE - 10 bs - 3 machines, ABd 2 machines 10 lbs, LE 3 machined 20 lbs =3 sets of 15 reps. Next appt with me in 4 weeks, will continue to send me weekly weights. (2) HTN (hypertension), benign: Code(s): I10 - Essential (primary) hypertension Plan: no further meds (3) Diabetes mellitus: Code(s): E11.9 - Type 2 diabetes mellitus without complications Plan: resolved Telehealth Telehealth Location of provider rendering services: practice address Location of patient: address on file Patient Identification confirmed using: Name, : Yes Telehealth method: video Patient verbally consented to treatment: Yes Patient verbally consented to billing insurance company: Yes Patient informed of any privacy concerns related to visit: Yes Coding Level of Care Code Est Pt Level 4 (42439) Diagnoses S/P laparoscopic sleeve gastrectomy Z98.84 HTN (hypertension), benign I10 Diabetes mellitus E11.9
[2023-08-19 10:45] VITALS: BMI 39.2
== END 2023-08-19 11:05 | disposition home or self-care (01) ==
LOC: HO.HBS 10:59
PROVIDERS: Visit Provider Physician Assistant
DX: E66.9 Obesity, unspecified (principal); Z68.39 Body mass index [BMI] 39.0-39.9, adult; Z90.3 Acquired absence of stomach [part of]; Z98.84 Bariatric surgery status
CPT/HCPCS: 99024

== ENCOUNTER → 2023-08-19 10:30 | Outpatient (BNVA) | payer OTHER, SELFPAY | PROVIDERS: Visit Provider Physician Assistant ==

== ENCOUNTER 2023-09-09 10:30 | Outpatient (AMB) | payer OTHER, SELFPAY ==
--- NOTE | 2023-09-09 10:37 | MHC.OFFVISWM ---
Intake VS Expanded 09/09/23 10:41 Height 5 ft 3 in Weight 218 lb 7 oz BMI 38.7 Intake Visit Reasons: VIDEO PO LSG 06/29/23 Allergies No Known Allergies Allergy (Verified 07/25/23 09:05) Medication List - Last Reconciled 09/09/23 by Padmini Villarreal PA-C iron,carbonyl-vitamin C 65 mg iron- 125 mg (Vitron-C) 1 tab PO BEDTIME pantoprazole 40 mg PO DAILY@0630 HPI HPI Comments History of Present Illness Details Pt is now 2.5 months s/p LSG with Dr Velasquez. No n/v, abd pain or reflux. 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 TBWL is 67.7 lbs or 23.6%. Only loosing 1 lb per week and feels tired all the time. Now sleeping 8 hours per night and taking iron pills for known chronic anemia. No heavy menses.. Meal plan - 10 am - 4:1 2 scoops with water or UAM 2pm- same shake 5:30 - 1 oz fish or chicken - 2 forks 9 pm - bar Exercise - treadmill 2d/week - 350 calories - 45 minutes. speed 3.0, incline 2-8. Weights 3 d/week- UE - 10 bs - 3 machines, ABd 2 machines 10 lbs, LE 3 machined 20 lbs =3 sets of 15 reps. [facility] Medical History (Updated 09/09/23 @ 10:52 by Padmini Villarreal PA-C) Pre-op evaluation Diabetes Anemia COVID-19 Asthma Murmur HTN (hypertension) Surgical History History of laparoscopic partial gastrectomy Hx of varicose vein stripping History of removal of ovarian cyst Hx of cholecystectomy Hx of myomectomy Hx of umbilical hernia repair Family History Mother Diabetes Father No problems noted. Social History Household Members: Family Housing: House Are you a primary acute care physical therapist to a significant other at home: No Do you presently have visiting nurse or other home services: No Alcohol intake: never Patient Tobacco Use Status: Never used Tobacco service: No Assessment & Plan Assessment & Plan (1) S/P laparoscopic sleeve gastrectomy: Code(s): Z98.84 - Bariatric surgery status Plan: Pt has slow weight loss - not exercising enough, has good meal plan - no changes toher than add 2 forks of cooked vegetable to her dinner meal by her request. Exercise - treadmill needs to be 400 calories 5 d/week minimum. WEights 2 d/week - she states she will make these changes now and text me in 1 week with her weight and progress. Continue vitron c - I placed order or CBC first week in October. Next appt with me in 6 weeks. (2) Anemia: Code(s): D64.9 - Anemia, unspecified Plan: see above Orders: Orders Complete Blood Count Auto Diff 10/10/23 D64.9 - Anemia, unspecified, Z90.3 - Acquired absence of stomach [part of], Z98.84 - Bariatric surgery status Telehealth Telehealth Location of provider rendering services: practice address Location of patient: address on file Patient Identification confirmed using: Name, : Yes Telehealth method: video Patient verbally consented to treatment: Yes Patient verbally consented to billing insurance company: Yes Patient informed of any privacy concerns related to visit: Yes Coding Level of Care Code Global (08180) Diagnoses S/P laparoscopic sleeve gastrectomy Z98.84 Anemia D64.9
[2023-09-09 10:41] VITALS: BMI 38.7
== END 2023-09-09 10:58 | disposition home or self-care (01) ==
LOC: HO.HBS 10:50
PROVIDERS: Visit Provider Physician Assistant
DX: Z98.84 Bariatric surgery status (principal); D64.9 Anemia, unspecified
CPT/HCPCS: 99024

== ENCOUNTER → 2023-09-09 10:30 | Outpatient (BNVA) | payer OTHER, SELFPAY | PROVIDERS: Visit Provider Physician Assistant | DX: Z98.84 Bariatric surgery status (principal); I10 Essential (primary) hypertension; E11.9 Type 2 diabetes mellitus without complications ==

== ENCOUNTER 2023-10-26 11:00 | Outpatient (AMB) | payer OTHER, SELFPAY ==
--- NOTE | 2023-10-26 11:01 | A.OFFVIS_ITS ---
Intake VS Expanded 10/26/23 11:16 Height 5 ft 3 in Weight 208 lb 6 oz BMI 36.9 Intake Visit Reasons: VIDEO PO LSG 06/29/23 Allergies No Known Allergies Allergy (Verified 07/25/23 09:05) HPI HPI Comments History of Present Illness Details Pt is now 4.5 months s/p LSG with DR Velasquez. 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 Has lost 10 lbs over 5-6 weeks. No n/v, abd pain or reflux. Feels that she has more energy now. Her PCP changed her to another iron supplement and added calcium, she takes the calcium with dinner and takes iron at bedtime. Her hgb was 10.0 in June and then 10.5 earlier this month. No heavy menses, never had work up for chronic anemia. Meal plan: 10:30 am - 4:1 2 scoops UAM 2:30 pm - same shake 6pm - 2 oz? chicken or fish, 1 oz brocco li or cauliflower protien bar at night Exercise - treadmill 450 calories 3 d/week minimum. Weights 3 d/week. [facility] Medical History (Updated 10/26/23 @ 11:19 by Padmini Villarreal PA-C) Pre-op evaluation Diabetes Anemia COVID-19 Asthma Murmur HTN (hypertension) Surgical History History of laparoscopic partial gastrectomy Hx of varicose vein stripping History of removal of ovarian cyst Hx of cholecystectomy Hx of myomectomy Hx of umbilical hernia repair Family History Mother Diabetes Father No problems noted. Social History Household Members: Family Housing: House Are you a primary lawn care professional to a significant other at home: No Do you presently have visiting nurse or other home services: No Alcohol intake: never Patient Tobacco Use Status: Never used Tobacco service: No Assessment & Plan Assessment & Plan (1) Obesity: Code(s): E66.9 - Obesity, unspecified Plan: Slow weight loss, exercising more but still not enough. Need 90 - 95 grams. Meal plan: 10:30 am - 4:1 2 scoops UAM 2:30 pm - same shake 6pm - 2 oz lean protein, 2 oz raw or cooked vegetables bar at night Exercise - treadmill 500 calories 4 d/week minimum. Weights 3 d/week. Goal of 2,000 tera/week. Next appt at 6 months with PA., full post op labs at that time. (2) S/P laparoscopic sleeve gastrectomy: Code(s): Z98.84 - Bariatric surgery status Plan: see above (3) Anemia: Code(s): D64.9 - Anemia, unspecified Plan: will follow up with PCP Telehealth Telehealth Location of provider rendering services: practice address Location of patient: address on file Patient Identification confirmed using: Name, : Yes Telehealth method: video Patient verbally consented to treatment: Yes Patient verbally consented to billing insurance company: Yes Patient informed of any privacy concerns related to visit: Yes Coding Level of Care Code Tele Est Pt Level 4 (81678) Diagnoses Obesity E66.9 S/P laparoscopic sleeve gastrectomy Z98.84 Anemia D64.9
[2023-10-26 11:16] VITALS: BMI 36.9
== END 2023-10-26 11:29 | disposition home or self-care (01) ==
LOC: HO.HBS 11:04
PROVIDERS: Visit Provider Physician Assistant
DX: E66.9 Obesity, unspecified (principal); Z98.84 Bariatric surgery status; D64.9 Anemia, unspecified
CPT/HCPCS: 99214

== ENCOUNTER → 2023-10-26 11:00 | Outpatient (BNVA) | payer OTHER, SELFPAY | PROVIDERS: Visit Provider Physician Assistant | DX: Z98.84 Bariatric surgery status (principal); I10 Essential (primary) hypertension; E11.9 Type 2 diabetes mellitus without complications; D64.9 Anemia, unspecified ==

== ENCOUNTER 2024-02-22 15:23 | Outpatient (AMB) | payer OTHER, SELFPAY ==
[2024-02-22 13:22] VITALS: BMI 35.3
--- NOTE | 2024-02-22 13:22 | MHC.OFFVISWM ---
VS Expanded 02/22/24 13:22 Height 5 ft 3 in Weight 199 lb 5 oz BMI 35.3 Intake Visit Reasons: (TV) PO LSG 06/29/23 Allergies No Known Allergies Allergy (Verified 07/25/23 09:05) HPI Comments Details: Patient is a pleasant 43-year-old female who returns to the office today in follow-up. She is approximately 8 months post sleeve gastrectomy performed on 06/29/[address] Velasquez. Weight at the time of surgery was 239.3 lb. Weight today is 199.5 lb with a BMI of 35.3. She has lost 39.8 pounds or 16.5 % TBWL. She states she is happy with her weight loss and would like to lose 30-40 pounds more. Meal plan: Celebrate 4 in 1 2 scoops in 8 oz 8784-2973, 230-430 meal 6 pm, 4 forks protein and 4 forks veg syriac yogurt or protein bar (pure protein), 8-9 pm drinking 48-64 oz water exercise plan: 3 days/w gym cardio then weights, Cardio (30 min / 300 tera) [facility] Medical History (Updated 10/26/23 @ 11:19 by Padmini Villarreal PA-C) Pre-op evaluation Diabetes Anemia COVID-19 Asthma Murmur HTN (hypertension) Surgical History History of laparoscopic partial gastrectomy Hx of varicose vein stripping History of removal of ovarian cyst Hx of cholecystectomy Hx of myomectomy Hx of umbilical hernia repair Family History Mother Diabetes Father No problems noted. Social History Household Members: Family Housing: House Are you a primary child care education coordinator to a significant other at home: No Do you presently have visiting nurse or other home services: No Alcohol intake: never Patient Tobacco Use Status: Never used Tobacco service: No Telehealth Telehealth Telehealth Platform: Telephone Location of provider rendering services: practice address Location of patient: address on file Patient Identification confirmed using: Name, : Yes Telehealth method: voice only Patient verbally consented to treatment: Yes Patient verbally consented to billing insurance company: Yes Patient informed of any privacy concerns related to visit: Yes Minutes spent on Phone/Video with Pt.: 15 Assessment & Plan Assessment & Plan (1) Obesity: Code(s): E66.9 - Obesity, unspecified Category: Medical Plan: Patient has been encouraged to follow the meal plan exactly: Celebrate 4 in 1 2 scoops at 5944-1015 Celebrate 4 in 1 1 scoop to 230-430 Meal at 6 with 6 forks protein and 6 forks salad or vegetables Celebrate 4 in 1 1 scoop at 8-10 Encouraged to increase exercise to 4-5 days a week, burning at least 400-450 calories per day. Text with any questions or concerns. Follow-up in the office in 1 month
== END 2024-02-22 15:23 | disposition home or self-care (01) ==
LOC: HO.HBS 15:23
PROVIDERS: Visit Provider Physician Assistant Surgical
DX: E66.9 Obesity, unspecified (principal)
CPT/HCPCS: 99213

== ENCOUNTER → 2024-02-22 15:23 | Outpatient (BNVA) | payer OTHER, SELFPAY | PROVIDERS: Visit Provider Physician Assistant Surgical | DX: E66.9 Obesity, unspecified (principal) ==

== ENCOUNTER 2024-06-29 08:43 | Outpatient (AMB) | payer OTHER, SELFPAY ==
--- NOTE | 2024-06-29 08:45 | MHC.OFFVISWM ---
VS Expanded 06/29/24 08:52 BP 147/71 H Blood Pressure Location Rt brachial Blood Pressure Position Sitting Pulse 73 Pulse Source Pulse Oximeter Temp 97.4 F Temperature Source Temporal Artery Scan Pulse Oximetry 100 Oxygen Delivery Method Room Air Height 5 ft 3 in Weight 201 lb 6.4 oz BMI 35.7 Body Fat % 32.3 Body Fat Mass 65.0 Fat Free Mass 136.2 Visceral Fat Rating 8.0 Body Water % 48.3 Body Water Mass 97.2 Muscle Mass/Score 129.4 Basal Metabolic Rate/Score 1,840 Intake Visit Reasons: (oV) PO LSG 06/29/23 Sound Recording Technician Required: No Allergies No Known Allergies Allergy (Verified 06/29/24 08:48) Medication List - Last Reconciled 06/29/24 by GARRICK Yoo iron,carbonyl-vitamin C 65 mg iron- 125 mg (Vitron-C) 1 tab PO BEDTIME HPI Comments Details: Patient is a pleasant 43-year-old female who returns to the office today in follow-up. She is approximately 1 year post sleeve gastrectomy performed on 06/29/[address] Velasquez. Weight at the time of surgery was 239.3 lb. Weight today is 201.4 lb with a BMI of 35.7. She has lost 37.9 pounds or 15.8 % TBWL. She states she is happy with her weight loss and would like to maintain her current weight. She is not following the meal plan and had forgotten to take the last shake and would snack so she changed her plan to do 2 scoops at each shake and then her meal Meal plan: Celebrate 4 in 1 2 scoops at 6506-2399 Celebrate 4 in 1 2 scoop to 230-430 Meal at 6 with not measuring drinking 64 oz water exercise plan: treadmill at home 30 min 3 days per week, 350 Any post op complications: none DEVYN: never DM: resolved HTN: resolveed Hyperlipidemia: resolved GERD:?0-5 scale ??0 = no symptoms ??1 = symptoms noticeable but not bothersome 2 =symptoms bothersome but not daily ? 3 = symptoms bothersome and daily 4 = symptoms affect daily activities 5 = symptoms are incapacitating, unable to do daily activities ? How bad is the heartburn: 0 ? Heartburn while lying down: 0 ? Heartburn when standing up: 0 ? Heartburn after meals: 0 ? Does heartburn change your diet: 0 ? Does heartburn wake you up from sleep: 0 ? Do you have difficulty swallowin ? Do you have pain with swallowin ? If you take medicine for your reflux, does this affect your daily life: 0 Satisfaction with present condition - satisfied or not satisfied: satisfied [facility] Medical History Pre-op evaluation Diabetes Anemia COVID-19 Asthma Murmur HTN (hypertension) Surgical History History of laparoscopic partial gastrectomy Hx of varicose vein stripping History of removal of ovarian cyst Hx of cholecystectomy Hx of myomectomy Hx of umbilical hernia repair Family History Mother Diabetes Father No problems noted. Social History Household Members: Family Housing: House Are you a primary pet care attendant to a significant other at home: No Do you presently have visiting nurse or other home services: No Alcohol intake: never Patient Tobacco Use Status: Never used Tobacco service: No Physical Exam Const General: cooperative and no acute distress Orientation/consciousness: patient oriented x3 Resp Effort & Inspection: normal respiratory effort Auscultation: clear to auscultation bilaterally Cardio Rate: regular rate Rhythm: regular rhythm GI Inspection: Yes normal to inspection and Yes incision (well healed) Palpation (GI): Soft to palpation and no masses Neuro General: patient oriented x3 Assessment & Plan Assessment & Plan (1) S/P laparoscopic sleeve gastrectomy: Code(s): Z98.84 - Bariatric surgery status Category: Surgical Plan: Patient states that she would like to maintain her current weight despite being obese. She will continue her current meal plan although recommend increasing exercise to 5 days a week, burning 400 calories per day. Recommend 25 minutes of weight training and 40 minutes of cardio. Adding 1 day of yoga weekly to improve balance. We will check yearly postop labs. Discussed excess skin as she was concerned about excess skin of her arms and her abdomen. Discussed the importance of hygiene, letting me know if she develops any rashes. Recommend continuing to send weight is weekly and follow-up in the office as scheduled. Orders: Orders Complete Blood Count Auto Diff Today D64.9 - Anemia, unspecified, E11.9 - Type 2 diabetes mellitus without complications, E87.6 - Hypokalemia, I10 - Essential (primary) hypertension, Z98.84 - Bariatric surgery status Lipid Panel Today D64.9 - Anemia, unspecified, E11.9 - Type 2 diabetes mellitus without complications, E87.6 - Hypokalemia, I10 - Essential (primary) hypertension, Z98.84 - Bariatric surgery status Comprehensive Met. Panel Today D64.9 - Anemia, unspecified, E11.9 - Type 2 diabetes mellitus without complications, E87.6 - Hypokalemia, I10 - Essential (primary) hypertension, Z98.84 - Bariatric surgery status Zinc Today D64.9 - Anemia, unspecified, E11.9 - Type 2 diabetes mellitus without complications, E87.6 - Hypokalemia, I10 - Essential (primary) hypertension, Z98.84 - Bariatric surgery status Vitamin B1 Today D64.9 - Anemia, unspecified, E11.9 - Type 2 diabetes mellitus without complications, E87.6 - Hypokalemia, I10 - Essential (primary) hypertension, Z98.84 - Bariatric surgery status Vitamin D 25-OH Total Today D64.9 - Anemia, unspecified, E11.9 - Type 2 diabetes mellitus without complications, E87.6 - Hypokalemia, I10 - Essential (primary) hypertension, Z98.84 - Bariatric surgery status Insulin Today D64.9 - Anemia, unspecified, E11.9 - Type 2 diabetes mellitus without complications, E87.6 - Hypokalemia, I10 - Essential (primary) hypertension, Z98.84 - Bariatric surgery status Hemoglobin A1c Today D64.9 - Anemia, unspecified, E11.9 - Type 2 diabetes mellitus without complications, E87.6 - Hypokalemia, I10 - Essential (primary) hypertension, Z98.84 - Bariatric surgery status IRON PROFILE Today D64.9 - Anemia, unspecified, E11.9 - Type 2 diabetes mellitus without complications, E87.6 - Hypokalemia, I10 - Essential (primary) hypertension, Z98.84 - Bariatric surgery status Vitamin B12 and Folate Today D64.9 - Anemia, unspecified, E11.9 - Type 2 diabetes mellitus without complications, E87.6 - Hypokalemia, I10 - Essential (primary) hypertension, Z98.84 - Bariatric surgery status C Reactive Protein Today D64.9 - Anemia, unspecified, E11.9 - Type 2 diabetes mellitus without complications, E87.6 - Hypokalemia, I10 - Essential (primary) hypertension, Z98.84 - Bariatric surgery status Vitamin A Today D64.9 - Anemia, unspecified, E11.9 - Type 2 diabetes mellitus without complications, E87.6 - Hypokalemia, I10 - Essential (primary) hypertension, Z98.84 - Bariatric surgery status TSH reflex Free T4 Today D64.9 - Anemia, unspecified, E11.9 - Type 2 diabetes mellitus without complications, E87.6 - Hypokalemia, I10 - Essential (primary) hypertension, Z98.84 - Bariatric surgery status Ferritin Today D64.9 - Anemia, unspecified, E11.9 - Type 2 diabetes mellitus without complications, E87.6 - Hypokalemia, I10 - Essential (primary) hypertension, Z98.84 - Bariatric surgery status
[2024-06-29 08:52] VITALS: BP 147/71; PULSE 73; TEMP 36.3; O2SAT 100; BMI 35.7
== END 2024-06-29 09:11 | disposition home or self-care (01) ==
PROVIDERS: Visit Provider Physician Assistant Surgical
DX: E66.09 Other obesity due to excess calories (principal); E66.812 Obesity, class 2; Z68.35 Body mass index [BMI] 35.0-35.9, adult; Z98.84 Bariatric surgery status
CPT/HCPCS: 99214

== ENCOUNTER → 2024-06-29 08:43 | Outpatient (BNVA) | payer OTHER, SELFPAY | PROVIDERS: Visit Provider Physician Assistant Surgical ==